=== PATIENT | male | born 1935 | race Caucasian/White ===

== ENCOUNTER 2017-03-25 09:22 | Inpatient (IN) ==
[2017-03-25] MEDS ORDERED: Ipratropium/Albuterol Neb 3 ML IH ONE (09:28)
[2017-03-25] MEDS ORDERED: methylPREDNISolone 125 MG/2 ML VIAL IVP ONE (09:28)
[2017-03-25] MEDS ORDERED: 0.9 % Sodium Chloride 1,000 ML IVC ONE (09:30)
--- NOTE | 2017-03-25 09:31 | Emergency Department Note ---
Disposition Clinical Impression: COPD exacerbation, Leukocytosis, Acute exacerbation of chronic obstructive airways disease Disposition: Admitted As Inpatient Condition: Fair General Adult HPI - General Chief complaint: ED Shortness of Breath/Dyspnea Stated complaint: CHELSI Time Seen by Provider: 03/25/17 09:22 Source: patient, family Limitations: no limitations - History of Present Illness Pain Scale: 0 - Related Data Home Medications Medication Instructions Recorded Confirmed Albuterol Neb [Proventil Neb] 2.5 mg IH Q4HR PRN 07/15/15 03/25/17 Amlodipine Besylate/Benazepril 1 cap PO DAILY 07/15/15 03/25/17 [Lotrel 5-10 mg Capsule] Docosahexanoic Acid/Epa [Fish Oil 1 cap PO DAILY 07/15/15 03/25/17 Concentrate Softgel] Meloxicam [Mobic] 15 mg PO DAILY 07/15/15 03/25/17 Omeprazole [PriLOSEC] 40 mg PO DAILY 07/15/15 03/25/17 PredniSONE 10 mg PO DAILY 07/15/15 03/25/17 Tiotropium [Spiriva] 18 mcg IH DAILY 07/15/15 03/25/17 Aspirin 81 mg PO DAILY 09/12/16 03/25/17 Fluticasone/Salmeterol [Advair 1 puff IH BID 09/12/16 03/25/17 500-50 Diskus] TraZODone 50 mg PO HS 09/12/16 03/25/17 ALPRAZolam [Xanax 0.5 MG Tablet] 0.5 mg PO TID PRN 03/25/17 03/25/17 Apixaban [Eliquis] 5 mg PO BID 03/25/17 03/25/17 Azithromycin [Zithromax] 250 mg PO Q48H 03/25/17 03/25/17 Budesonide/Formoterol 160/4.5 2 puff IH BID 03/25/17 03/25/17 [Symbicort 160/4.5] Diltiazem CD (24hr) [Cardizem CD] 180 mg PO DAILY 03/25/17 03/25/17 Furosemide [Lasix] 5 mg PO DAILY PRN 03/25/17 03/25/17 Frederic/Poly/Dex Opth SUSP [Maxitrol 1 drop BOTH EYES HS 03/25/17 03/25/17 OPTH SUSP] Simvastatin [Zocor] 40 mg PO HS 03/25/17 03/25/17 Tamsulosin [Flomax] 0.4 mg PO DAILY 03/25/17 03/25/17 Previous Rx's Medication Instructions Recorded predniSONE [PredniSONE] 40 mg PO DAILY #10 tablet 09/12/16 Allergies Allergy/AdvReac Type Severity Reaction Status Date / Time Penicillins [PCN] Allergy Rash Verified 03/25/17 10:18 Past Medical History - Past Medical History Medical history: Reports: arthritis, COPD, GERD, hyperlipidemia, hypertension Surgical history: Reports: angioplasty/stent, herniorrhaphy, hip replacement, knee replacement, pacemaker/AICD Psychiatric history: Reports: anxiety - Social History Smoking Status: Former smoker Smokeless Tobacco Status: No Alcohol use: Reports: none Drug use: Reports: none Physical Exam - General Limitations: no limitations General appearance: alert, in no apparent distress Course Vital Signs Temperature 98.9 F 03/25/17 09:24 Pulse Rate 97 03/25/17 09:24 Respiratory Rate 26 03/25/17 09:24 Blood Pressure 133/102 03/25/17 09:24 O2 Sat by Pulse Oximetry 88 03/25/17 09:24 Temperature 98.1 F 03/25/17 15:11 Pulse Rate 81 03/25/17 15:11 Respiratory Rate 19 03/25/17 16:10 Blood Pressure 144/77 03/25/17 15:11 O2 Sat by Pulse Oximetry 95 03/25/17 16:10 Oxygen Delivery Oxygen Delivery Nasal Cannula Medical Decision Making - Lab Data Result diagrams: 03/25/17 09:30 03/25/17 09:30 Lab Results 03/25/17 03/25/17 03/25/17 Range/Units 09:30 09:30 09:30 WBC 32.0 H* (4.3-11.1) K/mcL RBC 5.18 (4.19-5.50) M/mcL Hgb 14.8 (12.9-16.9) g/dL Hct 45.6 (37.5-50.1) % MCV 88.0 (83.0-100.0) fL MCH 28.6 (28.0-33.3) pg MCHC 32.5 (31.6-35.5) g/dL RDW 13.8 (11.5-14.5) % Plt Count 341 (140-400) K/mcL MPV 8.9 L (9.4-12.4) fL Seg Neutrophils % 84.0 % Band Neutrophils % 9.0 H (0-4) % Lymphocytes % 3.0 % Monocytes % 4.0 % Neutrophils # 29.8 H (1.6-8.9) K/mcL Lymphocytes # 1.0 (0.6-4.6) K/mcL Monocytes # 1.3 (0.0-1.3) K/mcL Platelet Estimate Normal (Normal) PT (9.4-12.1) Seconds INR D-Dimer (0-500) ng/mLFEU Sodium 137 (136-145) mEq/L Potassium 4.3 (3.5-4.5) mEq/L Chloride 102 (98-109) mEq/L Carbon Dioxide 26 (19-29) mEq/L BUN 13 (8-26) mg/dL Creatinine 1.05 (0.72-1.25) mg/dL Est GFR ( Amer) > 60 (> 60) Est GFR (Non-Af Amer) > 60 (> 60) BUN/Creatinine Ratio 12 (6-26) Glucose 165 H (70-99) mg/dL Calculated Osmolality 288 (280-300) Lactic Acid (0.5-2.2) mmol/L Calcium 10.2 (8.6-10.8) mg/dL Troponin I 0.02 (0-0.03) ng/mL B-Natriuretic Peptide (0-100) pg/mL 03/25/17 03/25/17 03/25/17 Range/Units 09:30 09:30 10:36 WBC (4.3-11.1) K/mcL RBC (4.19-5.50) M/mcL Hgb (12.9-16.9) g/dL Hct (37.5-50.1) % MCV (83.0-100.0) fL MCH (28.0-33.3) pg MCHC (31.6-35.5) g/dL RDW (11.5-14.5) % Plt Count (140-400) K/mcL MPV (9.4-12.4) fL Seg Neutrophils % % Band Neutrophils % (0-4) % Lymphocytes % % Monocytes % % Neutrophils # (1.6-8.9) K/mcL Lymphocytes # (0.6-4.6) K/mcL Monocytes # (0.0-1.3) K/mcL Platelet Estimate (Normal) PT 12.9 H (9.4-12.1) Seconds INR 1.2 D-Dimer (0-500) ng/mLFEU Sodium (136-145) mEq/L Potassium (3.5-4.5) mEq/L Chloride (98-109) mEq/L Carbon Dioxide (19-29) mEq/L BUN (8-26) mg/dL Creatinine (0.72-1.25) mg/dL Est GFR ( Amer) (> 60) Est GFR (Non-Af Amer) (> 60) BUN/Creatinine Ratio (6-26) Glucose (70-99) mg/dL Calculated Osmolality (280-300) Lactic Acid 1.0 (0.5-2.2) mmol/L Calcium (8.6-10.8) mg/dL Troponin I (0-0.03) ng/mL B-Natriuretic Peptide 54 (0-100) pg/mL 03/25/17 03/25/17 Range/Units 13:06 14:48 WBC (4.3-11.1) K/mcL RBC (4.19-5.50) M/mcL Hgb (12.9-16.9) g/dL Hct (37.5-50.1) % MCV (83.0-100.0) fL MCH (28.0-33.3) pg MCHC (31.6-35.5) g/dL RDW (11.5-14.5) % Plt Count (140-400) K/mcL MPV (9.4-12.4) fL Seg Neutrophils % % Band Neutrophils % (0-4) % Lymphocytes % % Monocytes % % Neutrophils # (1.6-8.9) K/mcL Lymphocytes # (0.6-4.6) K/mcL Monocytes # (0.0-1.3) K/mcL Platelet Estimate (Normal) PT (9.4-12.1) Seconds INR D-Dimer 578 H (0-500) ng/mLFEU Sodium (136-145) mEq/L Potassium (3.5-4.5) mEq/L Chloride (98-109) mEq/L Carbon Dioxide (19-29) mEq/L BUN (8-26) mg/dL Creatinine (0.72-1.25) mg/dL Est GFR ( Amer) (> 60) Est GFR (Non-Af Amer) (> 60) BUN/Creatinine Ratio (6-26) Glucose (70-99) mg/dL Calculated Osmolality (280-300) Lactic Acid (0.5-2.2) mmol/L Calcium (8.6-10.8) mg/dL Troponin I 0.01 (0-0.03) ng/mL B-Natriuretic Peptide (0-100) pg/mL Attestation Statement - Attestation Attestation: I examined this patient and my medical decision-making was reviewed with the [employer]/PA/Advanced Practice Nurse/Resident Physician. I agree with the documented findings, disposition and treatment plan as described except to the extent set forth below. [id number] time provided Patient with a known history of COPD presents with dyspnea. He is actively dyspneic and using accessory muscles to breathe on exam
--- NOTE | 2017-03-25 09:32 | Emergency Department Note ---
Disposition Clinical Impression: COPD exacerbation, Acute exacerbation of chronic obstructive airways disease Leukocytosis Qualifiers: Leukocytosis type: unspecified Qualified Code(s): D72.829 - Elevated white blood cell count, unspecified Disposition: Admitted As Inpatient Condition: Fair Referrals: NO,PCP [Non-Partnered Physician] - Forms: ED Satisfaction Letter Time of Disposition: 10:05 SOB HPI - General Chief Complaint: ED Shortness of Breath/Dyspnea Stated Complaint: CHELSI Time Seen by Provider: 03/25/17 09:22 Source: patient, family Mode of arrival: wheelchair Limitations: no limitations Nursing Notes Reviewed: Yes Vital Signs Reviewed: Yes - History of Present Illness 81-year-old male history of hypertension, COPD presents for evaluation of dyspnea. History provided by the patient as well as the at bedside. states the patient has been having worsening shortness of breath over the past week. Patient also has been using his nebulizer at home 4-5 times a day. states he cannot ambulate from the bed to the bathroom without losing his breath. states that the patient has been intermittently on prednisone at home. Patient took 20 mg of prednisone this morning. Patient also received his nebulizer this morning as well. states that the patient is prescribed 2 L oxygen but the patient does not wear that on a routine basis. Patient denies any chest pain. Patient has been having a number of cough. No fevers. No recent hospitalizations. No nausea or vomiting. No abdominal pain. Patient does have history of A. fib and is on [place]. Pt Subjective Complaint: shortness of breath, cough Onset (ago): day(s) Improves with: oxygen, rest, bronchodilators, upright position Known history of: COPD Treatment prior to arrival: bronchodilator Cough present: Yes - Related Data Home oxygen amount: 2 liters Home Medications Medication Instructions Recorded Confirmed Albuterol Neb [Proventil Neb] 2.5 mg IH Q4HR PRN 07/15/15 09/12/16 Amlodipine Besylate/Benazepril 1 each PO DAILY 07/15/15 09/12/16 [Lotrel 5-10 mg Capsule] Atenolol [Tenormin] 50 mg PO DAILY 07/15/15 09/12/16 Atorvastatin [Lipitor] 20 mg PO HS 07/15/15 09/12/16 Budesonide/Formoterol 80/4.5 2 puff IH BIDR 07/15/15 09/12/16 [Symbicort] Docosahexanoic Acid/Epa [Fish Oil 1 each PO DAILY 07/15/15 09/12/16 Concentrate Softgel] Meloxicam [Mobic] 15 mg PO DAILY 07/15/15 09/12/16 Omeprazole [PriLOSEC] 40 mg PO DAILY 07/15/15 09/12/16 PredniSONE 10 mg PO DAILY 07/15/15 09/11/16 Tiotropium [Spiriva] 18 mcg IH DAILY 07/15/15 09/12/16 Aspirin 81 mg PO DAILY 09/12/16 09/12/16 Fluticasone/Salmeterol [Advair 1 puff IH BID 09/12/16 09/12/16 500-50 Diskus] TraZODone 50 mg PO HS 09/12/16 09/12/16 Previous Rx's Medication Instructions Recorded Furosemide [Lasix] 10 mg PO DAILY 5 Days 07/15/15 predniSONE [PredniSONE] 40 mg PO DAILY #10 tablet 09/12/16 Allergies Allergy/AdvReac Type Severity Reaction Status Date / Time Penicillins [PCN] Allergy Rash Verified 03/25/17 10:18 All systems ED: reviewed and negative except as stated. Constitutional: Reports: as per HPI. Denies: fever Eyes: Reports: as per HPI ENT ED: Reports: as per HPI Cardiovascular: Reports: as per HPI. Denies: chest pain Respiratory: Reports: as per HPI, cough, dyspnea. Denies: sputum production Gastrointestinal: Reports: as per HPI. Denies: nausea, vomiting Genitourinary: Reports: as per HPI Musculoskeletal: Reports: as per HPI Integumentary: Reports: as per HPI Neurological: Reports: as per HPI Psychiatric: Reports: as per HPI Endocrine: Reports: as per HPI Hematological/Lymphatic: Reports: as per HPI Allergic/Immunologic: Reports: as per HPI Past Medical History - Past Medical History Medical history: Reports: arthritis, COPD, GERD, hyperlipidemia, hypertension Surgical history: Reports: angioplasty/stent, herniorrhaphy, hip replacement, knee replacement, pacemaker/AICD Psychiatric history: Reports: anxiety - Social History Smoking Status: Former smoker Smokeless Tobacco Status: No Alcohol use: Reports: none Drug use: Reports: none Physical Exam - General Limitations: no limitations General appearance: alert, in distress - Head Head exam: atraumatic, normocephalic, normal inspection - Eye Eye exam: Present: normal appearance, PERRL, EOMI - ENT ENT exam: normal exam, mucous membranes moist - Neck Neck exam: Present: normal inspection, trachea midline - Chest Chest inspection: Present: normal inspection, symmetric chest wall rise - Respiratory Respiratory exam: Present: accessory muscle use (Sitting up in bed accessory muscle use.), prolonged expiratory phase, other (Diffusely decreased airflow) - Cardiovascular Cardiovascular exam: Present: tachycardia. Absent: systolic murmur - Abdominal Exam Abdominal exam: Present: soft, Non-Tender - Extremities Exam Extremities exam: Present: normal inspection, pedal edema (trace b/l) - Back Exam Back exam: Present: normal inspection - Neurological Exam Neurological exam: Present: alert, oriented X3 - Skin Skin exam: Present: warm, dry, intact, normal color Course Course Narrative: Patient seen and examined upon arrival. Patient appears in acute distress with accessory muscle use. Patient was 86% on 2 L initially. Patient's lung exam reveals tight airways. Notable wheeze. No focal lung exam. Patient has had a history of COPD. Patient will get respiratory support with nebs, steroids. Patient also get a screening cardiopulmonary valuation EKG, chest x-ray and lab work. Disposition likely admission. - Reevaluation(s) Reevaluation #1: Patient seen and examined. Patient's oxygen saturations did improve with nebs and steroids. Time: 09:42 Reevaluation #2: Patient seen and examined. Patient continues to improve with respiratory support. The patient does not warrant an inpatient this time. Patient's labwork reviewed that show that he has a significant leukocytosis likely related to steroids as well as stress response. Patient's chest x-ray shows no acute abnormalities. Given the degree of respiratory distress the patient was started on Levaquin. Patient will be admitted to the hospital service for further care and respiratory monitoring. Time: 09:59 Vital Signs Temperature 98.9 F 03/25/17 09:24 Pulse Rate 97 03/25/17 09:24 Respiratory Rate 26 03/25/17 09:24 Blood Pressure 133/102 03/25/17 09:24 O2 Sat by Pulse Oximetry 88 03/25/17 09:24 Temperature 98.9 F 03/25/17 09:24 Pulse Rate 93 03/25/17 09:44 Respiratory Rate 22 03/25/17 09:44 Blood Pressure 155/87 03/25/17 09:44 O2 Sat by Pulse Oximetry 97 03/25/17 09:44 Oxygen Delivery Oxygen Delivery Aerosol Mask Shortness of Breath/Dyspnea - MDM Narrative Medical decision making narrative: 81-year-old male with a history of COPD presents for evaluation respiratory distress and work of breathing. Patient's states symptoms started approximately a week ago. Progressively gotten worse. Patient denies any chest pain but does note worsening dyspnea. I states that the patient cannot ambulate and perform his activities daily living without increased work of breathing. Patient was noted be hypoxic on 2 L. Patient required oxygen supplementation besides his baseline. Patient was treated with steroids as well as DuoNeb's. Patient was tachycardic and tachypnea. Patient did meet surgical criteria however the patient is not septic. This is normal systemic response due to stress and increased work of breathing. Patient's chest x-ray shows no acute abnormalities however the patient was started on Levaquin given the degree of his symptoms. Patient also is noted to have leukocytosis likely related to steroids as well as stress response. No formal diagnosis of leukemia. Patient was given IV fluid hydration. Respiratory support. Patient' s chemistries as well as EKG and troponin were unremarkable. Less likely the patient has pulmonary embolism as he is on anticoagulation. Patient will be admitted to the hospital service for further care and monitoring. Looking back at the patient's history the patient was admitted 6 months ago for similar symptoms but no recent admissions. Patient is agreeable to plan of care. - Lab Data Lab results reviewed: Yes I reviewed the patient's lab results. Result diagrams: 03/25/17 09:30 03/25/17 09:30 Lab Results 03/25/17 03/25/17 03/25/17 Range/Units 09:30 09:30 09:30 WBC 32.0 H* (4.3-11.1) K/mcL RBC 5.18 (4.19-5.50) M/mcL Hgb 14.8 (12.9-16.9) g/dL Hct 45.6 (37.5-50.1) % MCV 88.0 (83.0-100.0) fL MCH 28.6 (28.0-33.3) pg MCHC 32.5 (31.6-35.5) g/dL RDW 13.8 (11.5-14.5) % Plt Count 341 (140-400) K/mcL MPV 8.9 L (9.4-12.4) fL Seg Neutrophils % 84.0 % Band Neutrophils % 9.0 H (0-4) % Lymphocytes % 3.0 % Monocytes % 4.0 % Neutrophils # 29.8 H (1.6-8.9) K/mcL Lymphocytes # 1.0 (0.6-4.6) K/mcL Monocytes # 1.3 (0.0-1.3) K/mcL Platelet Estimate Normal (Normal) PT (9.4-12.1) Seconds INR Sodium 137 (136-145) mEq/L Potassium 4.3 (3.5-4.5) mEq/L Chloride 102 (98-109) mEq/L Carbon Dioxide 26 (19-29) mEq/L BUN 13 (8-26) mg/dL Creatinine 1.05 (0.72-1.25) mg/dL Est GFR ( Amer) > 60 (> 60) Est GFR (Non-Af Amer) > 60 (> 60) BUN/Creatinine Ratio 12 (6-26) Glucose 165 H (70-99) mg/dL Calculated Osmolality 288 (280-300) Calcium 10.2 (8.6-10.8) mg/dL Troponin I 0.02 (0-0.03) ng/mL B-Natriuretic Peptide (0-100) pg/mL 03/25/17 03/25/17 Range/Units 09:30 09:30 WBC (4.3-11.1) K/mcL RBC (4.19-5.50) M/mcL Hgb (12.9-16.9) g/dL Hct (37.5-50.1) % MCV (83.0-100.0) fL MCH (28.0-33.3) pg MCHC (31.6-35.5) g/dL RDW (11.5-14.5) % Plt Count (140-400) K/mcL MPV (9.4-12.4) fL Seg Neutrophils % % Band Neutrophils % (0-4) % Lymphocytes % % Monocytes % % Neutrophils # (1.6-8.9) K/mcL Lymphocytes # (0.6-4.6) K/mcL Monocytes # (0.0-1.3) K/mcL Platelet Estimate (Normal) PT 12.9 H (9.4-12.1) Seconds INR 1.2 Sodium (136-145) mEq/L Potassium (3.5-4.5) mEq/L Chloride (98-109) mEq/L Carbon Dioxide (19-29) mEq/L BUN (8-26) mg/dL Creatinine (0.72-1.25) mg/dL Est GFR ( Amer) (> 60) Est GFR (Non-Af Amer) (> 60) BUN/Creatinine Ratio (6-26) Glucose (70-99) mg/dL Calculated Osmolality (280-300) Calcium (8.6-10.8) mg/dL Troponin I (0-0.03) ng/mL B-Natriuretic Peptide 54 (0-100) pg/mL - Radiology Data Radiology results reviewed: Yes I reviewed the patient's radiology results. Chest X-Ray 03/25/17 09:28 IMPRESSION: Stable chest with no new acute cardiopulmonary findings. D/ / Belen Carrizales MD / Belen Carrizales MD Interpreting Provider: Belen Carrizales MD - EKG Data EKG attestation: Yes I reviewed and interpreted this EKG. EKG shows normal: Reports: sinus rhythm Rate: Reports: tachycardia Rhythm: Reports: A.Fib [place]/QRS: Reports: normal Q waves: Reports: v1 T wave inversions noted in: Reports: v3 (Biphasic), v4 (Biphasic) Interpretation: Reports: no acute changes, nonspecific ST-T wave changes S.B.A.RTima - Katerina.Aviva.Maryellen Situation: Demographics Background: Presenting Complaint Assessment: Vital Signs, Course and respsone to treatment, Patient/Family Expectation Recommendation: Barrier(s) to disposition, Recommendation based on pending studies, treatments, or consults S.BTimaAViktor Report Given to: Dr. Orlin Erwin Time: 10:23
[2017-03-25 09:43] LABS: Hematocrit 45.6 % (37.5-50.1); Hemoglobin 14.8 g/dL (12.9-16.9); Mean Corpuscular HGB Conc 32.5 g/dL (31.6-35.5); Mean Corpuscular Hemoglobin 28.6 pg (28.0-33.3); Mean Platelet Volume 8.9 fL (9.4-12.4); Platelet Count 341 K/mcL (140-400); Red Blood Count 5.18 M/mcL (4.19-5.50); Red Cell Distribution Width 13.8 % (11.5-14.5)
[2017-03-25 09:45] LABS: INR 1.2; Prothrombin Time 12.9 Seconds (9.4-12.1)
[2017-03-25 09:53] LABS: BUN/Creatinine Ratio 12 (6-26); Blood Urea Nitrogen 13 mg/dL (8-26); Calcium 10.2 mg/dL (8.6-10.8); Carbon Dioxide 26 mEq/L (19-29); Chloride 102 mEq/L (98-109); Glucose 165 mg/dL (70-99); Osmolality,Calculated 288 (280-300); Potassium 4.3 mEq/L (3.5-4.5); Sodium 137 mEq/L (136-145); eGFR For African Americans > 60 (> 60); eGFR For Non-African Americans > 60 (> 60)
[2017-03-25] MEDS ORDERED: Levofloxacin 750 MG/150 ML 750 MG/150 ML BAG IVPB ONE (09:55)
[2017-03-25 10:10] LABS: Monocytes # 1.3 K/mcL (0.0-1.3); Neutrophils # 29.8 K/mcL (1.6-8.9); Platelet Estimate Normal (Normal)
[2017-03-25] MEDS ORDERED: Naloxone 0.4 MG/ML INJ IVP PRN (11:52)
[2017-03-25] MEDS ORDERED: Acetaminophen 325 MG TABLET PO PRN (11:52)
[2017-03-25] MEDS ORDERED: Albuterol 2.5 MG/3 ML NEBULIZER IH PRN (11:53)
[2017-03-25] MEDS ORDERED: Ipratropium/Albuterol Neb 3 ML ONE (12:57)
[2017-03-25] MEDS: Ipratropium/Albuterol Neb 3 ML IH SCH ×4 (13:01→23:07)
--- NOTE | 2017-03-25 13:25 | Internal Med History&Physical ---
<Gwendolyn Burnett - Last Filed: 03/25/17 14:05> Date of Encounter: 03/25/17 Time of Encounter: 12:00 Assessment and Plan (1) Respiratory failure with hypoxia Current visit: Yes Status: Acute 1 patient presented with tachypnea use of accessory muscles S PO2 80%.. He was given oxygen as well as DuoNeb steroids rest was tested improved. We will continue with oxygen titrating to maintain SPO2 greater than 92% 2 continuous steroids 3 and bronchodilators 4 we will check d-dimer rule out possible PE 5 check cardiac echo Qualifiers: Chronicity: acute on chronic Qualified Code(s): J96.21 - Acute and chronic respiratory failure with hypoxia (2) Acute exacerbation of chronic obstructive airways disease Current visit: Yes Status: Acute 1 presently experiencing some mild rest were distress with audible wheezing and sensory muscle use we will continue with DuoNeb nebs every 4 hours, every 2 as needed 2 continue with oxygen titrated maintain SPO2 greater than 92% 3 continue with steroids IV every 6 hours-taper (3) Leukocytosis Current visit: Yes Status: Acute 1 WBC 32 -suspect possibly related to steroids and reactive. However will rule out possible infectious process. Chest x-ray is clear we will obtain urinalysis 2 we will continue with Levaquin for now until the infectious process ruled out Qualifiers: Leukocytosis type: unspecified Qualified Code(s): D72.829 - Elevated white blood cell count, unspecified (4) Chronic a-fib Current visit: Yes Status: Acute 1 presently rate controlled we will continue with oral Cardizem as well as Eliquis (5) CAD (coronary artery disease) Current visit: Yes Status: Acute 1 presently no CP- continue aspirin statin and nitrates as needed 2 continue to trend troponin 3 cardiac monitoring Qualifiers: Coronary Disease-Associated Artery/Lesion type: [place] artery [place] vs. transplanted heart: [place] heart Associated angina: without angina Qualified Code(s): I25.10 - Atherosclerotic heart disease of [place] coronary artery without angina pectoris (6) DVT prophylaxis Current visit: Yes Status: Acute continue Eliquis Internal Medicine - H&P: HPI Chief complaint: SOB Admitted From: Emergency Dept Plans for Post Hospital Care: Home History of present illness: Mr. Vaca is a 81 year old male with past medical history of atrial fibrillation COPD GERD hypertension lipidemia CAD with stents pacemaker AICD. Patient has been experiencing increasing shortness of breath on exertion over the past week. Normally he is on 2 L nasal cannula as needed however over the past week he has been requiring continuous oxygen. He has been using nebulizer treatments with some relief. He denies any chest pain/palpitations fevers chills abdominal pain nausea vomiting or diarrhea. He does have nonproductive cough as well as lower extremity swelling bilaterally which she states is chronic. Last night he noted shortness of breath was worse than usual when he awoke this morning he was unable to relieve his symptoms with either oxygen nor breathing treatments. His states she gave him 40 mg of oral prednisone without any relief in symptoms Patient was transported to emergency department for evaluation. According to ER records upon arrival patient appeared to be in respiratory distress tachypnic using accessory muscles. Oxygen saturation was 88% on 2 L. He was immediately given breathing treatments, as well as IV Solu- Medrol with slight improvement in his respiratory state. Lab work did reveal some leukocytosis at 32.0 troponin was 0.02 BNP is 54 lactate was 1 chest x-ray with no acute process. He was given IV antibiotics and has been admitted for further workup and evaluation. Presently patient does appear to be in slight respiratory distress he has some audible wheezing with mild use of the sensory muscles. Lung sounds are diminished with faint expiratory wheeze. Heart sounds are irregular no rubs click gallops murmurs noted. Abdomen soft and nontender. Lower extremity with some pedal edema bilaterally. Presently he is satting 96% on 4 L. I reviewed this case with Dr Ordaz who agrees with plan Past Med Surg Social Fam HX - Past Medical History Medical history: arthritis, COPD, GERD, hyperlipidemia, hypertension Psychiatric history: anxiety - Past Surgical History Surgical History: angioplasty/stent, herniorrhaphy, hip replacement, knee replacement, pacemaker/AICD - Social History Smoking Status: Former smoker Smokeless Tobacco Status: No Alcohol use: none Drug use: none - Family History Father Hx Family Endocrine Disorder: Yes (DM) Internal Medicine - H&P: Meds Albuterol Neb [Proventil Neb] 2.5 mg IH Q4HR PRN 07/15/15 [History] Amlodipine Besylate/Benazepril [Lotrel 5-10 mg Capsule] 1 cap PO DAILY 07/15/15 [History] Docosahexanoic Acid/Epa [Fish Oil Concentrate Softgel] 1 cap PO DAILY 07/15/15 [ History] Meloxicam [Mobic] 15 mg PO DAILY 07/15/15 [History] Omeprazole [PriLOSEC] 40 mg PO DAILY 07/15/15 [History] PredniSONE 10 mg PO DAILY 07/15/15 [History] Tiotropium [Spiriva] 18 mcg IH DAILY 07/15/15 [History] Aspirin 81 mg PO DAILY 09/12/16 [History] Fluticasone/Salmeterol [Advair 500-50 Diskus] 1 puff IH BID 09/12/16 [History] TraZODone 50 mg PO HS 09/12/16 [History] predniSONE [PredniSONE] 40 mg PO DAILY #10 tablet 09/12/16 [Rx] ALPRAZolam [Xanax 0.5 MG Tablet] 0.5 mg PO TID PRN 03/25/17 [History] Apixaban [Eliquis] 5 mg PO BID 03/25/17 [History] Azithromycin [Zithromax] 250 mg PO Q48H 03/25/17 [History] Budesonide/Formoterol 160/4.5 [Symbicort 160/4.5] 2 puff IH BID 03/25/17 [ History] Diltiazem CD (24hr) [Cardizem CD] 180 mg PO DAILY 03/25/17 [History] Furosemide [Lasix] 5 mg PO DAILY PRN 03/25/17 [History] Frederic/Poly/Dex Opth SUSP [Maxitrol OPTH SUSP] 1 drop BOTH EYES HS 03/25/17 [ History] Simvastatin [Zocor] 40 mg PO HS 03/25/17 [History] Tamsulosin [Flomax] 0.4 mg PO DAILY 03/25/17 [History] Allergies Penicillins [PCN] Allergy (Verified 03/25/17 10:18) Rash All Systems PM: A 10-system review of systems was performed and is negative for pertinent findings except as documented above in the HPI. - Constitutional Constitutional: weight gain, no chills, no fever(s), no night sweats - EENT Eyes: no change in vision, no discharge, no pain, no photophobia Nose, mouth and throat: no dysphagia, no nasal discharge, no neck pain, no sore throat - Cardiovascular Cardiovascular ROS IM: dyspnea on exertion, edema, no chest pain, no diaphoresis , no dyspnea, no lightheadedness, no palpitations, no syncope - Respiratory Respiratory: cough, dyspnea on exertion, no dyspnea, no wheezing, no excessive phlegm production - Gastrointestinal Gastrointestinal: no abdominal pain, no diarrhea, no hematemesis, no hematochezia, no melena, no nausea, no vomiting - Musculoskeletal Musculoskeletal ROS IM: no numbness, no tingling - Integumentary Integumentary IM: no rash, no unusual bruising - Neurological Neurological ROS: no confusion, no convulsions, no focal weakness, no numbness, no tingling, no tremor(s) - Hematologic/Lymphatic Hematologic/Lymphatic: no easy bruising - Constitutional Vitals: Temp Pulse Resp BP Pulse Ox 97.9 F 94 20 162/78 95 03/25/17 11:45 03/25/17 11:45 03/25/17 13:02 03/25/17 11:45 03/25/17 13:02 General appearance: Present: A&O X 3, answers questions appropriately - Head Head exam: Present: atraumatic, normocephalic - Eye Eye exam: Present: PERRL, conjuntiva pink, sclera anicteric Pupils: Present: PERRL - Neck Neck exam general surgery: Present: supple, trachea midline. Absent: lymphadenopathy - Respiratory Respiratory exam: Present: decreased breath sounds, wheezes. Absent: accessory muscle use, rales, rhonchi - Cardiovascular Cardiovascular exam: Present: irregular rhythm, +S1, +S2. Absent: diastolic murmur, gallop, rubs, systolic murmur - GI/Abdominal GI/Abdominal exam: Present: normal bowel sounds, soft, no peritoneal signs. Absent: distended, tenderness - Extremities Exam Extremities exam: Present: warm, radial pulses palpable and symetrical. Absent : calf tenderness, cyanotic, pedal edema - Neurological Exam Neurological exam: Present: CN II-XII intact, oriented X3, no focal deficits. Absent: pronater drift, facial droop, speech deficit - Skin Skin exam: Present: dry, intact Internal Med - H&P Results - Labs CBC & Chem 7: 03/25/17 09:30 03/25/17 09:30 - EKG Data EKG comments: 03/25/17 13:44 EKG with atrial fibrillation. She has some T-wave inversions in V3 V4 V5 - Diagnostic Studies Other Images Additional comments: Chest X-Ray 03/25/17 09:28 IMPRESSION: Stable chest with no new acute cardiopulmonary findings. D/ / Belen Carrizales MD / Belen Carrizales MD Interpreting Provider: Belen Carrizales MD <OrlinJarvis T - Last Filed: 03/25/17 14:17> Date of Encounter: 03/25/17 Internal Medicine - H&P: HPI History of present illness: Mr. Vaca is a 81 year old male All Systems PM: A 10-system review of systems was performed and is negative for pertinent findings except as documented above in the HPI. - Constitutional Vitals: Temp Pulse Resp BP Pulse Ox 97.9 F 94 20 162/78 95 03/25/17 11:45 03/25/17 11:45 03/25/17 13:02 03/25/17 11:45 03/25/17 13:02 Internal Med - H&P Results - Labs CBC & Chem 7: 03/25/17 09:30 03/25/17 09:30 - Attending Attestation I have independently seen and examined this patient, plan of care discussed with patient and family, as well as CYANIDE CASE HARDENER Burnett 81 M with PMH of COPD on home O2, GERD, HTN, HLD, Afib with AICD on Eliquis, reports symptoms of shortness of breath for about a week with a sudden acute exacerbation during last night, for which he could not walk from his bed to the bathroom. He denies new or worsening cough, fever or chills, no chest pain, palpitations or dizziness. No abdominal symptoms, he had LE swelling for which he started taking po Lasix for a few days. He took 40mg prednisone and multiple nebs prior to presentation In the ER, was found to be hypoxic, O2 Sat 88% and in severed distress, using accessory muscles of respiration, he was started on management for COPD exacerbation On evaluation, he is in no form of distress and has made significant improvement , he however continues to have diminished air entry and few scattered wheezes. No crackles, abdomen is benign, trace pedal edema bilaterally. Labs and imaging reviewed: Leukocytosis 32,000 with left shift, otherwise unremarkable. EKG showed TWI in leads V3-V5, new compared to prior EKG in 2015, CXR with no infiltrates A/P* Acute hypoxic respiratory failure secondary to acute exacerbation of COPD. R/O ACS. Send D-dimer, Trend troponin, Obtain ECHO, duonebs q4 and q2prn, resume home meds, and continue IV steroids. Rest of details as in STEEL LAYER Burnett documentation which I agree with
[2017-03-25 17:29] LABS: Bilirubin,Urine Negative (Negative); Blood,Urine Trace (Negative); Clarity,Urine Clear (Clear); Color,Urine Yellow (Yellow); Glucose,Urine (UA) Normal (Normal); Ketones,Urine Negative (Negative); Leukocyte Esterase,Urine Negative (Negative); Nitrite,Urine Negative (Negative); Protein,Urine 30 mg/dL (Neg-Trace); Specific Gravity,Urine 1.015 (1.010-1.025); Urobilinogen,Urine Normal (Normal)
[2017-03-25 17:31] LABS: Bacteria,Urine None Seen per hpf (None-Few); Hyaline Casts,Urine None Seen per lpf (None-Few); Squamous Epithelial Cell,Urine Moderate per lpf (None-Few); WBC,Urine 0-3 per hpf (0-3)
[2017-03-25] MEDS: methylPREDNISolone 125 MG/2 ML VIAL IVP SCH ×2 (18:11→22:55)
[2017-03-25] MEDS: Budesonide/Formoterol 160/4.5 MDI IH SCH (19:53)
[2017-03-25] MEDS: APIXABAN 5 MG TABLET PO SCH (20:52)
[2017-03-25] MEDS: Maxitrol OPTH SUSP 5 ML BOTTLE BOTH EYES SCH (20:52)
[2017-03-25] MEDS: traZODone 50 MG TABLET PO SCH (20:52)
[2017-03-25] MEDS ORDERED: Budesonide/Formoterol 160/4.5 MDI IH SCH (21:00)
[2017-03-26] MEDS: Ipratropium/Albuterol Neb 3 ML IH SCH ×5 (03:58→19:50)
[2017-03-26 05:11] LABS: Basophils % 0.1 %; Hematocrit 38.4 % (37.5-50.1); Immature Granulocytes % 0.6 % (0-4); Lymphocytes # 0.5 K/mcL (0.6-4.6); Lymphocytes % 2.1 %; Mean Corpuscular HGB Conc 33.1 g/dL (31.6-35.5); Mean Corpuscular Volume 87.7 fL (83.0-100.0); Monocytes # 0.2 K/mcL (0.0-1.3); Platelet Count 287 K/mcL (140-400); Red Blood Count 4.38 M/mcL (4.19-5.50); Red Cell Distribution Width 13.7 % (11.5-14.5); Segmented Neutrophils % 96.2 %
[2017-03-26 05:14] LABS: Hemoglobin 12.7 g/dL (12.9-16.9); Neutrophils # 22.2 K/mcL (1.6-8.9)
[2017-03-26 05:19] LABS: BUN/Creatinine Ratio 17 (6-26); Blood Urea Nitrogen 17 mg/dL (8-26); Calcium 9.2 mg/dL (8.6-10.8); Carbon Dioxide 22 mEq/L (19-29); Chloride 105 mEq/L (98-109); Glucose 149 mg/dL (70-99); Magnesium 1.7 mg/dL (1.6-2.6); Osmolality,Calculated 286 (280-300); Potassium 4.3 mEq/L (3.5-4.5); Sodium 136 mEq/L (136-145); eGFR For African Americans > 60 (> 60); eGFR For Non-African Americans > 60 (> 60)
[2017-03-26] MEDS: methylPREDNISolone 125 MG/2 ML VIAL IVP SCH ×2 (05:37→12:38)
[2017-03-26 05:49] LABS: Platelet Estimate Normal (Normal)
[2017-03-26] MEDS: Tiotropium 18 MCG inhalation IH SCH (07:45)
[2017-03-26] MEDS: Budesonide/Formoterol 160/4.5 MDI IH SCH ×2 (07:45→19:50)
[2017-03-26] MEDS ORDERED: amLODIPine 5 MG TABLET PO SCH ×2 (09:00→17:38)
[2017-03-26] MEDS: Diltiazem CD (24hr) 180 MG CAPSULE PO SCH (09:26)
[2017-03-26] MEDS: Levofloxacin 750 MG/150 ML 750 MG/150 ML BAG IVPB SCH (09:26)
[2017-03-26] MEDS: APIXABAN 5 MG TABLET PO SCH ×2 (09:26→20:26)
[2017-03-26] MEDS: Aspirin 81 MG TAB.CHEW PO SCH (09:26)
--- NOTE | 2017-03-26 17:31 | Internal Med Progress Note ---
Date of Encounter: 03/26/17 Time of Encounter: 14:00 - Assessment and plan (1) Respiratory failure with hypoxia Current Visit: Yes Status: Acute Assessment and plan: Pt still on 4L oxygen. Still dyspneic with movement. Will titrate down as able but patient requests a higher flow rate at discharge so will need to write new prescription. Qualifiers: Chronicity: acute on chronic Qualified Code(s): J96.21 - Acute and chronic respiratory failure with hypoxia (2) Acute exacerbation of chronic obstructive airways disease Current Visit: Yes Status: Acute Assessment and plan: Slowly improving. Taper steroids and continue other medications. Hopeful d/c tomorrow if continues to improve. (3) Leukocytosis Current Visit: Yes Status: Acute Assessment and plan: Somewhat better today. Recheck tomorrow. Qualifiers: Leukocytosis type: unspecified Qualified Code(s): D72.829 - Elevated white blood cell count, unspecified (4) Chronic a-fib Current Visit: Yes Status: Acute Assessment and plan: Rate controlled at this time. Seems to be regular on exam. On Eliquis. (5) CAD (coronary artery disease) Current Visit: Yes Status: Chronic Assessment and plan: Chronic issue. Qualifiers: Coronary Disease-Associated Artery/Lesion type: [place] artery [place] vs. transplanted heart: [place] heart Associated angina: without angina Qualified Code(s): I25.10 - Atherosclerotic heart disease of [place] coronary artery without angina pectoris - Subjective Interval history: Mr. Vaca is currently admitted for acute hypoxic resp failure related to acute exac COPD. He remains moderate to high risk due to potential for worsening respiratory status. Mr. Vaca is feeling somewhat better today though still very dyspneic with movement. No CP. No fever or chills. No GI symptoms. - Constitutional Vitals: Temp Pulse Resp BP Pulse Ox 98.2 F 89 18 140/78 91 03/26/17 15:50 03/26/17 15:50 03/26/17 16:08 03/26/17 15:50 03/26/17 16:08 General appearance: Present: A&O X 3, answers questions appropriately - Head Head exam: Present: normocephalic - Eye Eye exam: Present: EOMI, conjuntiva pink - ENT ENT exam: Present: mucous membranes moist - Respiratory Respiratory exam: Present: prolonged expiratory phase, wheezes. Absent: rales, rhonchi Additional comments: Slight end exp wheeze bilaterally. - Cardiovascular Cardiovascular exam: Present: RRR. Absent: systolic murmur, tachycardia - GI/Abdominal GI/Abdominal exam: Present: soft. Absent: tenderness - Extremities Exam Extremities exam: Present: warm. Absent: tenderness - Neurological Exam Neurological exam: Present: alert, oriented X3, no focal deficits - Psychiatric Psychiatric exam: Present: normal affect, normal mood - Skin Skin exam: Present: dry, warm. Absent: rash Internal Medicine: Result - Labs CBC & Chem 7: 03/26/17 03:34 03/26/17 03:34 Labs: Short CBC 03/26/17 Range/Units 03:34 WBC 23.1 H (4.3-11.1) K/mcL Hgb 12.7 L D (12.9-16.9) g/dL Hct 38.4 (37.5-50.1) % Plt Count 287 (140-400) K/mcL Neutrophils # 22.2 H (1.6-8.9) K/mcL BMP 03/26/17 03:34 Sodium 136 Potassium 4.3 Chloride 105 Carbon Dioxide 22 BUN 17 Creatinine 1.00 Glucose 149 H Calcium 9.2 Cardiac Enzymes 03/25/17 Range/Units 21:09 Troponin I 0.03 (0-0.03) ng/mL Urine 03/25/17 Range/Units 17:15 Urine Color Yellow (Yellow) Urine Clarity Clear (Clear) Urine pH 6.0 (5.0-8.0) pH Units Ur Specific [place] 1.015 (1.010-1.025) Urine Protein 30 H (Neg-Trace) mg/dL Urine Glucose (UA) Normal (Normal) mg/dL - ABG Interpretation ABG results: PT/INR, D-dimer PT 12.9 Seconds (9.4-12.1) H 03/25/17 09:30 D-Dimer 578 ng/mLFEU (0-500) H 03/25/17 13:06 Consult Discharge Plan - Plan Referrals: King Monique MD [Primary Care Provider] -
[2017-03-26] MEDS: MethylPREDNISolone 40 MG/ML VIAL IVP SCH ×2 (18:37→23:24)
[2017-03-26] MEDS: traZODone 50 MG TABLET PO SCH (20:25)
[2017-03-26] MEDS: Maxitrol OPTH SUSP 5 ML BOTTLE BOTH EYES SCH (20:26)
[2017-03-27] MEDS: Ipratropium/Albuterol Neb 3 ML IH SCH ×4 (00:14→11:17)
[2017-03-27] MEDS: MethylPREDNISolone 40 MG/ML VIAL IVP SCH (05:20)
[2017-03-27 05:24] LABS: Hematocrit 38.2 % (37.5-50.1); Hemoglobin 12.5 g/dL (12.9-16.9); Mean Corpuscular HGB Conc 32.7 g/dL (31.6-35.5); Mean Corpuscular Hemoglobin 28.3 pg (28.0-33.3); Mean Corpuscular Volume 86.6 fL (83.0-100.0); Mean Platelet Volume 9.4 fL (9.4-12.4); Platelet Count 283 K/mcL (140-400); Red Blood Count 4.41 M/mcL (4.19-5.50); Red Cell Distribution Width 13.7 % (11.5-14.5)
[2017-03-27 05:39] LABS: BUN/Creatinine Ratio 24 (6-26); Blood Urea Nitrogen 23 mg/dL (8-26); Calcium 9.5 mg/dL (8.6-10.8); Carbon Dioxide 26 mEq/L (19-29); Chloride 105 mEq/L (98-109); Glucose 160 mg/dL (70-99); Magnesium 1.9 mg/dL (1.6-2.6); Osmolality,Calculated 293 (280-300); Sodium 138 mEq/L (136-145); eGFR For African Americans > 60 (> 60); eGFR For Non-African Americans > 60 (> 60)
[2017-03-27 07:41] VITALS: BP 133/65
[2017-03-27] MEDS: Budesonide/Formoterol 160/4.5 MDI IH SCH (07:47)
[2017-03-27] MEDS: Tiotropium 18 MCG inhalation IH SCH (07:47)
[2017-03-27] MEDS: Levofloxacin 750 MG/150 ML 750 MG/150 ML BAG IVPB SCH (08:02)
[2017-03-27] MEDS: APIXABAN 5 MG TABLET PO SCH (08:02)
[2017-03-27] MEDS: Diltiazem CD (24hr) 180 MG CAPSULE PO SCH (08:02)
[2017-03-27] MEDS: Aspirin 81 MG TAB.CHEW PO SCH (08:03)
--- NOTE | 2017-03-27 09:27 | Discharge Summary ---
<Giovanny Robison - Last Filed: 03/27/17 14:48> Date of Encounter: 03/27/17 Time of Encounter: 08:30 - Discharge Diagnosis (1) Respiratory failure with hypoxia Priority: Primary Status: Acute Qualifiers: Chronicity: acute on chronic Qualified Code(s): J96.21 - Acute and chronic respiratory failure with hypoxia (2) Acute exacerbation of chronic obstructive airways disease Priority: Primary Status: Acute (3) Leukocytosis Priority: Secondary Status: Acute Qualifiers: Leukocytosis type: unspecified Qualified Code(s): D72.829 - Elevated white blood cell count, unspecified (4) Chronic a-fib Priority: Secondary Status: Chronic (5) CAD (coronary artery disease) Priority: Secondary Status: Chronic Qualifiers: Coronary Disease-Associated Artery/Lesion type: [place] artery [place] vs. transplanted heart: [place] heart Associated angina: without angina Qualified Code(s): I25.10 - Atherosclerotic heart disease of [place] coronary artery without angina pectoris - Discharge Medications Prescriptions: predniSONE [PredniSONE] See Taper PO DAILY #30 tablet Home Medications: Albuterol Neb [Proventil Neb] 2.5 mg IH Q4HR PRN 07/15/15 [History] Amlodipine Besylate/Benazepril [Lotrel 5-10 mg Capsule] 1 cap PO DAILY 07/15/15 [History] Docosahexanoic Acid/Epa [Fish Oil Concentrate Softgel] 1 cap PO DAILY 07/15/15 [ History] Meloxicam [Mobic] 15 mg PO DAILY 07/15/15 [History] Omeprazole [PriLOSEC] 40 mg PO DAILY 07/15/15 [History] Tiotropium [Spiriva] 18 mcg IH DAILY 07/15/15 [History] Aspirin 81 mg PO DAILY 09/12/16 [History] Fluticasone/Salmeterol [Advair 500-50 Diskus] 1 puff IH BID 09/12/16 [History] TraZODone 50 mg PO HS 09/12/16 [History] ALPRAZolam [Xanax 0.5 MG Tablet] 0.5 mg PO TID PRN 03/25/17 [History] Apixaban [Eliquis] 5 mg PO BID 03/25/17 [History] Azithromycin [Zithromax] 250 mg PO Q48H 03/25/17 [History] Budesonide/Formoterol 160/4.5 [Symbicort 160/4.5] 2 puff IH BID 03/25/17 [ History] Diltiazem CD (24hr) [Cardizem CD] 180 mg PO DAILY 03/25/17 [History] Furosemide [Lasix] 5 mg PO DAILY PRN 03/25/17 [History] Frederic/Poly/Dex Opth SUSP [Maxitrol OPTH SUSP] 1 drop BOTH EYES HS 03/25/17 [ History] Simvastatin [Zocor] 40 mg PO HS 03/25/17 [History] Tamsulosin [Flomax] 0.4 mg PO DAILY 03/25/17 [History] predniSONE [PredniSONE] See Taper PO DAILY #30 tablet 03/27/17 [Rx] Allergies/Adverse Reactions: Allergies Penicillins [PCN] Allergy (Verified 03/25/17 10:18) Rash Date of admission: 03/25/17 16:06 Primary care physician: King Monique MD Consults: 03/27/17 09:17 Consult to Physical Therapy [CONS] Routine Comment: Evaluate, develop and implement POC Reason for Consult: Discharge planning. OT [Consult to Occupational Therapy] [CONS] Routine Comment: Evaluate, develop and implement POC Reason for Consult: Discharge planning. Discharging clinician: Giovanny Robison Anticipated date of discharge: 03/27/17 - Patient Status Disposition: Home, Self-Care Condition: Fair Functional capacity at discharge: independent ambulation Overall status at discharge: patient is progressing back to baseline - Discharge Instructions Follow Up With: King Monique MD [Primary Care Provider] - 03/31/17 1:30 pm (Within a week after discharge) Additional Instructions: Please take prednisone taper: 40 mg daily for 3 days, then 30 mg daily for 3 days, followed by 20 mg daily for 3 days and finally 10 mg daily for 3 days. You can use 4L continuous oxygen at home and prescription has been written. Please continue your other COPD medications including Symbicort, Spiriva and albuterol. Please follow up with your primary care physician within a week after discharge. - Diet and Activity Activity: increase activity as tolerated, wear oxygen at all times Diet: low fat, low cholesterol, low salt diet Hospital course: Mr. Vaca is a 81 year old male with PMH of chronic A-fib on Cardizem & Eliquis, COPD (on 2 L home oxygen as needed), GERD, HTN, hyperlipidemia, CAD with stents, pacemaker & CAD. Patient presented with complaint of worsening dyspnea on exertion over a week. Patient was noted to have leukocytosis (32.0) and tachypnea with desaturation on oxygen but negative CXR. Patient was admitted for hypoxic respiratory failure secondary to acute exacerbation of COPD. Patient was started on IV Solu-Medrol along with Symbicort, Spiriva, albuterol and supplemental oxygen. Echocardiogram on 03/26/17 found LVEF 60-65% with mild LV diastolic dysfunction. Patient's respiratory status and leukocytosis improves since admission. Patient has WBC downtrend to 19.1 and is able to maintain O2 sat above 93% with 4L oxygen on 03/27/17. Given patient improves clinically and remains hemodynamically stable, patient will be discharged home with prescription of 4L continuous oxygen and prednisone taper ( 40 mg daily for 3 days, then 30 mg daily for 3 days, followed by 20 mg daily for 3 days and finally 10 mg daily for 3 days). Patient is instructed to continue his other COPD medications including Symbicort, Spiriva and albuterol and follow up with his primary care physician within a week after discharge. Patient agreed with plan of discharge and verbalized his understanding with all questions answered. - Time Spent with Patient Total time spent providing and/or coordinating discharge services: Greater than 30 minutes - Constitutional Vitals: Temp Pulse Resp BP Pulse Ox 98.2 F 79 18 133/65 98 03/27/17 07:34 03/27/17 07:34 03/27/17 07:47 03/27/17 07:34 03/27/17 07:47 General appearance: Present: A&O X 3, answers questions appropriately - Head Head exam: Present: atraumatic, normocephalic - Eye Eye exam: Present: PERRL, conjuntiva pink, sclera anicteric - Neck Neck exam general surgery: Present: supple, trachea midline. Absent: lymphadenopathy - Respiratory Respiratory exam: Present: CTAB. Absent: accessory muscle use, rales, rhonchi, wheezes - Cardiovascular Cardiovascular exam: Present: irregular rhythm, +S1, +S2. Absent: diastolic murmur, gallop, rubs, systolic murmur - GI/Abdominal GI/Abdominal exam: Present: normal bowel sounds, soft, no peritoneal signs. Absent: distended, tenderness - Extremities Exam Extremities exam: Present: warm, radial pulses palpable and symetrical. Absent : calf tenderness, cyanotic, pedal edema - Neurological Exam Neurological exam: Present: CN II-XII intact, oriented X3, no focal deficits. Absent: pronater drift, facial droop, speech deficit - Skin Skin exam: Present: dry, intact, warm <Raymundo Oviedo A - Last Filed: 03/27/17 19:11> Date of Encounter: 03/27/17 - Discharge Diagnosis (1) Respiratory failure with hypoxia Status: Acute Qualifiers: Chronicity: acute on chronic Qualified Code(s): J96.21 - Acute and chronic respiratory failure with hypoxia (2) Acute exacerbation of chronic obstructive airways disease Status: Acute (3) Leukocytosis Status: Acute Qualifiers: Leukocytosis type: unspecified Qualified Code(s): D72.829 - Elevated white blood cell count, unspecified (4) Chronic a-fib Status: Chronic (5) CAD (coronary artery disease) Status: Chronic Qualifiers: Coronary Disease-Associated Artery/Lesion type: [place] artery [place] vs. transplanted heart: [place] heart Associated angina: without angina Qualified Code(s): I25.10 - Atherosclerotic heart disease of [place] coronary artery without angina pectoris Date of admission: 03/25/17 16:06 Primary care physician: King Monique MD Consults: 03/27/17 09:17 Consult to Physical Therapy [CONS] Routine Comment: Evaluate, develop and implement POC Reason for Consult: Discharge planning. OT [Consult to Occupational Therapy] [CONS] Routine Comment: Evaluate, develop and implement POC Reason for Consult: Discharge planning. Hospital course: Mr. Vaca is a 81 year old male - Time Spent with Patient Total time spent providing and/or coordinating discharge services: 38min - Constitutional Vitals: Temp Pulse Resp BP Pulse Ox 98.2 F 60 18 133/65 94 03/27/17 07:34 03/27/17 11:22 03/27/17 11:14 03/27/17 11:14 03/27/17 11:22 - Attending Attestation I examined this patient and my medical decision-making was reviewed with the Resident Physician on 03/27/17. I agree with the documented findings, disposition and treatment plan as described except to the extent set forth below. Mr. Vaca is feeling near baseline. He is afebrile with stable vitals and ready for discharge home. Exam Alert. Comfortable Heart reg No wheeze Plan D/C home today.
--- NOTE | 2017-03-27 12:58 | Electrocardiograph Report ---
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
== END 2017-03-27 12:30 | disposition home or self-care (01) | DRG 190 ==
LOC: EMEROO 09:22 → 3ANU 09:22
PROVIDERS: ADMIT Internal Medicine; ATTEND Internal Medicine

== ENCOUNTER 2018-12-23 18:33 | Observation (INO) ==
[2018-12-23] MEDS ORDERED: Ipratropium/Albuterol Neb 3 ML IH ONE (18:50)
[2018-12-23 19:28] LABS: Basophils % 0.2 %; Hematocrit 46.3 % (37.5-50.1); Hemoglobin 15.5 g/dL (12.9-16.9); Immature Granulocytes % 1.5 % (0-4); Lymphocytes # 0.4 K/mcL (0.6-4.6); Mean Corpuscular HGB Conc 33.5 g/dL (31.6-35.5); Mean Corpuscular Hemoglobin 29.6 pg (28.0-33.3); Mean Corpuscular Volume 88.5 fL (83.0-100.0); Mean Platelet Volume 9.3 fL (9.4-12.4); Monocytes % 4.7 %; Neutrophils # 19.2 K/mcL (1.6-8.9); Platelet Count 233 K/mcL (140-400); Red Blood Count 5.23 M/mcL (4.19-5.50); Red Cell Distribution Width 13.6 % (11.5-14.5); Segmented Neutrophils % 91.6 %
[2018-12-23 19:50] LABS: BUN/Creatinine Ratio 30 (6-26); Blood Urea Nitrogen 26 mg/dL (8-23); Calcium 10.1 mg/dL (8.6-10.3); Carbon Dioxide 26 mEq/L (23-29); Chloride 101 mEq/L (98-107); Glucose 134 mg/dL (70-105); Osmolality,Calculated 287 (280-300); Potassium 4.5 mEq/L (3.5-5.1); Sodium 135 mEq/L (136-145); eGFR For Non-African Americans > 60 (> 60)
[2018-12-23 19:51] LABS: Troponin I < 0.03 ng/mL (< 0.04)
[2018-12-23] MEDS ORDERED: methylPREDNISolone 125 MG/2 ML VIAL IVP ONE (20:09)
--- NOTE | 2018-12-23 20:35 | Emergency Department Note ---
Disposition Clinical Impression: COPD exacerbation Disposition: Admitted As Inpatient Condition: Good General Adult HPI - General Chief complaint: ED Shortness of Breath/Dyspnea Stated complaint: SOB Time Seen by Provider: 12/23/18 18:41 Source: patient Mode of arrival: private vehicle Limitations: no limitations Nursing Notes Reviewed: Yes Vital Signs Reviewed: Yes - History of Present Illness HPI Narrative: Pt is 82M with Pmhx of COPD that presents with 1 week of increasing shortness of breath. He was placed on antibiotics and steroids and his symptoms have gotten worse. He is complaining of productive cough, wheezing, shortness of breath, subjective fevers. He is denying chest pain, numbness/tingling, weakness. He is on 4L NC O2 at baseline and is currently saturating well on that amount at bedside. Pain Scale: 0 - Related Data Home Medications Medication Instructions Recorded Confirmed RX: Albuterol Neb [Proventil Neb] 2.5 mg IH Q4HR PRN 07/15/15 12/23/18 RX: Docosahexanoic Acid/Epa [Fish 1 cap PO DAILY 07/15/15 12/23/18 Oil Concentrate Softgel] RX: Omeprazole [PriLOSEC] 40 mg PO DAILY 07/15/15 12/23/18 RX: Tiotropium [Spiriva] 18 mcg IH DAILY 07/15/15 12/23/18 RX: TraZODone 50 mg PO HS 09/12/16 12/23/18 RX: Apixaban [Eliquis] 5 mg PO BID 03/25/17 12/23/18 RX: Budesonide/Formoterol 160/4.5 2 puff IH BID 03/25/17 12/23/18 [Symbicort 160/4.5] RX: Diltiazem CD (24hr) [Cardizem 180 mg PO DAILY 03/25/17 12/23/18 CD] RX: Furosemide [Lasix] 20 mg PO DAILY 03/25/17 12/23/18 RX: Tamsulosin [Flomax] 0.8 mg PO DAILY 03/25/17 12/23/18 Albuterol Sulfate [Albuterol 2 puff IH Q4HR PRN 12/23/18 12/23/18 Inhaler] Atorvastatin [Lipitor] 20 mg PO HS 12/23/18 12/23/18 RX: Doxycycline 100 mg PO BID 12/23/18 12/23/18 RX: predniSONE [PredniSONE] 5 mg PO BIDWM 12/23/18 12/23/18 Allergies Allergy/AdvReac Type Severity Reaction Status Date / Time Penicillins [PCN] Allergy Rash Verified 12/23/18 18:38 All systems ED: reviewed and negative except as stated. Constitutional: Reports: fever. Denies: chills Eyes: Denies: vision change ENT ED: Reports: throat pain, congestion Cardiovascular: Reports: dyspnea on exertion. Denies: chest pain Respiratory: Reports: cough, dyspnea, wheezes. Denies: hemoptysis Gastrointestinal: Denies: abdominal pain, nausea, vomiting, diarrhea, constip ation Genitourinary: Denies: urgency, dysuria Musculoskeletal: Denies: back pain, neck pain Integumentary: Denies: rash, abrasion Neurological: Denies: headache, weakness, numbness, paresthesias Psychiatric: Denies: anxiety, depression Endocrine: Denies: fatigue, heat or cold intolerance Hematological/Lymphatic: Denies: easy bleeding, easy bruising Allergic/Immunologic: Denies: facial swelling, urticaria Past Medical History - Past Medical History Medical history: Reports: arthritis, COPD, GERD, hyperlipidemia, hypertension Surgical history: Reports: angioplasty/stent, herniorrhaphy, hip replacement, k nee replacement, pacemaker/AICD Psychiatric history: Reports: anxiety - Social History Smoking Status: Former smoker Smokeless Tobacco Status: No Alcohol use: Reports: none Drug use: Reports: none Physical Exam General: A&O x 3. No acute distress. Well developed, well nourished. Head: atraumatic, normocephalic. ENT: No conjunctival injection, no scleral icterus. PERRLA. EOMI. Oropharynx n on- erythematous. mucous membranes moist. Neuro: No focal deficits, no speech deficit, no facial droop, mentating well. BUE/BLE Str 5/5. Pulm: Diffuse expiratory wheezes with prolonged expiratory phase and transmitted upper respiratory sounds. Cardio: RRR no m/r/g. Chest not tender to palpation. Abd: Soft, non-distended. Normoactive bowel sounds. Non-tender to palpation. No guarding. Non rigid. Extremities: Radial pulses 2+ jitendra, dorsalis pedis/posterior tibialis 2+ jitendra. No LE edema. No cyanosis, clubbing. Skin: warm, dry, intact. No rashes. Psych: Appropriate mood and affect. Answers questions appropriately. Cooperative with exam. - General Limitations: no limitations General appearance: alert, in no apparent distress Course Course Narrative: Will obtain CXR, EKG, CBC, BMP, Troponin, blood cultures, lactic. Suspect admit for failure of outpatient therapy and COPD exacerbation. - Reevaluation(s) Reevaluation #1: CXR concerning for pneumonia of right base. Ordered antibiotics for CAPNA, ceftriaxone and azithromycin. Time: 20:44 Vital Signs Temperature 98.6 F 12/23/18 18:35 Pulse Rate 83 12/23/18 18:35 Respiratory Rate 20 12/23/18 18:35 Blood Pressure 179/93 12/23/18 18:35 O2 Sat by Pulse Oximetry 91 12/23/18 18:35 Temperature 98.6 F 12/23/18 18:35 Pulse Rate 74 12/23/18 21:29 Respiratory Rate 19 12/23/18 21:29 Blood Pressure 168/80 12/23/18 21:29 O2 Sat by Pulse Oximetry 93 12/23/18 21:29 Oxygen Delivery Oxygen Delivery Nasal Cannula Medical Decision Making - MDM Narrative Medical decision making narrative: Pts CXR was concerning for PNA of right lower lobe, pt was started on ceftriaxone and azithromycin, and admitted to hospitalist, Dr. Newman. Pt verbalized understanding and agreement with the plan. Pt was given an opportunity to ask questions and all of his concerns were addressed. pt remained stable on baseline level of home o2 while in the department. - Medical Records Medical records reviewed: Yes I reviewed the patient's medical records. - Lab Data Lab results reviewed: Yes I reviewed the patient's lab results. Result diagrams: 12/23/18 19:04 12/23/18 19:04 Lab Results 12/23/18 12/23/18 12/23/18 Range/Units 19:04 19:04 19:04 WBC 20.9 H (4.3-11.1) K/mcL RBC 5.23 (4.19-5.50) M/mcL Hgb 15.5 (12.9-16.9) g/dL Hct 46.3 (37.5-50.1) % MCV 88.5 (83.0-100.0) fL MCH 29.6 (28.0-33.3) pg MCHC 33.5 (31.6-35.5) g/dL RDW 13.6 (11.5-14.5) % Plt Count 233 (140-400) K/mcL MPV 9.3 L (9.4-12.4) fL Immature Gran % 1.5 (0-4) % Seg Neutrophils % 91.6 % Lymphocytes % 2.0 % Monocytes % 4.7 % Eosinophils % 0.0 % Basophils % 0.2 % Neutrophils # 19.2 H (1.6-8.9) K/mcL Lymphocytes # 0.4 L (0.6-4.6) K/mcL Monocytes # 1.0 (0.0-1.3) K/mcL Eosinophils # 0.0 (0.0-0.6) K/mcL Basophils # 0.0 (0.0-0.2) K/mcL Sodium 135 L (136-145) mEq/L Potassium 4.5 (3.5-5.1) mEq/L Chloride 101 (98-107) mEq/L Carbon Dioxide 26 (23-29) mEq/L BUN 26 H (8-23) mg/dL Creatinine 0.88 (0.70-1.30) mg/dL Est GFR ( Amer) > 60 (> 60) Est GFR (Non-Af Amer) > 60 (> 60) BUN/Creatinine Ratio 30 H (6-26) Glucose 134 H (70-105) mg/dL Calculated Osmolality 287 (280-300) Lactic Acid (0.5-2.2) mmol/L Calcium 10.1 (8.6-10.3) mg/dL Troponin I < 0.03 (< 0.04) ng/mL B-Natriuretic Peptide 119 H (Less than 100) pg/mL 12/23/18 Range/Units 19:13 WBC (4.3-11.1) K/mcL RBC (4.19-5.50) M/mcL Hgb (12.9-16.9) g/dL Hct (37.5-50.1) % MCV (83.0-100.0) fL MCH (28.0-33.3) pg MCHC (31.6-35.5) g/dL RDW (11.5-14.5) % Plt Count (140-400) K/mcL MPV (9.4-12.4) fL Immature Gran % (0-4) % Seg Neutrophils % % Lymphocytes % % Monocytes % % Eosinophils % % Basophils % % Neutrophils # (1.6-8.9) K/mcL Lymphocytes # (0.6-4.6) K/mcL Monocytes # (0.0-1.3) K/mcL Eosinophils # (0.0-0.6) K/mcL Basophils # (0.0-0.2) K/mcL Sodium (136-145) mEq/L Potassium (3.5-5.1) mEq/L Chloride (98-107) mEq/L Carbon Dioxide (23-29) mEq/L BUN (8-23) mg/dL Creatinine (0.70-1.30) mg/dL Est GFR ( Amer) (> 60) Est GFR (Non-Af Amer) (> 60) BUN/Creatinine Ratio (6-26) Glucose (70-105) mg/dL Calculated Osmolality (280-300) Lactic Acid 1.4 (0.5-2.2) mmol/L Calcium (8.6-10.3) mg/dL Troponin I (< 0.04) ng/mL B-Natriuretic Peptide (Less than 100) pg/mL - Radiology Data Radiology results reviewed: Yes I reviewed the patient's radiology results. Chest X-Ray 12/23/18 18:56 IMPRESSION: Chronic versus recurrent right basilar atelectasis or infiltrate with right pleural effusion. Pneumonia is a consideration. Pulmonary sequela typical of that seen with smoking, including possible emphysema; correlate with clinical history. Calcific atherosclerotic disease aorta. D/ / John Lind / John Lind Interpreting Provider: John Lind - EKG Data EKG #1 EKG attestation: Yes I reviewed and interpreted this EKG. EKG results narrative: HR 63, rhythm atrial-ventricular dual paced, axis left at -86. Attestation Statement - Attestation Attestation: Resident Attestation: I examined this patient and my medical decision making was reviewed with the Resident Physician. I agree with the documented findings, disposition and treatment plan as described except to the extent set forth below. We independently had [id number] contact with the patient. Patient with a history of COPD presenting for evaluation of concern for COPD exacerbation as he has been feeling worsening shortness of breath over the last week. Patient has home oxygen. Patient does not typically wear it because his only as needed. Patient is requiring it for the last week. Treated outpatient antibiotics with azithromycin and prednisone. Patient continuing to get worse. Patient will likely require admission secondary to failed outpatient management. Patient with diffuse generalized wheezing that that improved with breathing treatments.
[2018-12-23] MEDS ORDERED: cefTRIAXone 1,000 MG in Water for inj. (sterile) 20 ML 10 ML IVPB ONE (20:51)
[2018-12-23] MEDS ORDERED: Azithromycin 500 MG in D5% in Water 250 ML IVPB ONE (20:51)
[2018-12-23] MEDS ORDERED: Albuterol 2.5 MG/3 ML NEBULIZER IH PRN (21:14)
--- NOTE | 2018-12-23 21:53 | Internal Med History&Physical ---
Date of Encounter: 12/23/18 Time of Encounter: 21:51 Internal Medicine - H&P: HPI Chief complaint: SOB Admitted From: Home Plans for Post Hospital Care: Home History of present illness: Per Vaca is an 82-year-old man with coronary artery disease, atrial fibrillation and COPD who has been treated as an outpatient for her COPD exacerbation over the past 1 week blood symptoms have not improved and continues to be short of breath. He has been using home nebulizer therapy as well as taking doxycycline and oral steroids but says his breathing has not improved. He denies any chest pain, fever or chills but does report sick contacts at home. He is unable to expectorate adequately when he coughs. In the ER he received triple nebulizer therapy, IV steroids and antibiotics. He is currently saturating 93% on 4 L. X-ray reveals a chronic right base fine infiltrate. Vitals: Reviewed General: Well-developed male sitting up in bed in no acute distress. Skin: Warm and supple. HEENT: Moist mucous membranes. No conjunctivae pallor. Neck: No lymphadenopathy. No JVD. No carotid bruits. No palpable thyroid. Chest: Pacemaker on left upper chest wall. Diminished thoracic expansion. Reduced air entry to both lung melo. Heart: Normal S1 & S2; rhythmic. No rubs or murmurs. Abdomen: Non-distended, soft and non-tender to palpation. No peritoneal reaction. Extremities: No clubbing, cyanosis or edema. No calf tenderness. Normal distal pulses. Neurological: Awake, alert and oriented to person, place and time. No focal deficits. Psych: Affect appropriate. Past Med Surg Social Fam HX - Past Medical History Medical history: arthritis, COPD, GERD, hyperlipidemia, hypertension Psychiatric history: anxiety - Past Surgical History Surgical History: angioplasty/stent, herniorrhaphy, hip replacement, knee replacement, pacemaker/AICD Additional surgical history: HEMORRHOIDECTOMY, right hip replacement, stents times 2. - Social History Smoking Status: Former smoker Smokeless Tobacco Status: No Alcohol use: none Drug use: none - Family History Father Hx Family Endocrine Disorder: Yes (DM) Internal Medicine - H&P: Meds Albuterol Neb [Proventil Neb] 2.5 mg IH Q4HR PRN 07/15/15 [History] Docosahexanoic Acid/Epa [Fish Oil Concentrate Softgel] 1 cap PO DAILY 07/15/15 [History] Omeprazole [PriLOSEC] 40 mg PO DAILY 07/15/15 [History] Tiotropium [Spiriva] 18 mcg IH DAILY 07/15/15 [History] TraZODone 50 mg PO HS 09/12/16 [History] Apixaban [Eliquis] 5 mg PO BID 03/25/17 [History] Budesonide/Formoterol 160/4.5 [Symbicort 160/4.5] 2 puff IH BID 03/25/17 [History] Diltiazem CD (24hr) [Cardizem CD] 180 mg PO DAILY 03/25/17 [History] Furosemide [Lasix] 20 mg PO DAILY 03/25/17 [History] Tamsulosin [Flomax] 0.8 mg PO DAILY 03/25/17 [History] Albuterol Sulfate [Albuterol Inhaler] 2 puff IH Q4HR PRN 12/23/18 [History] Atorvastatin [Lipitor] 20 mg PO HS 12/23/18 [History] Doxycycline 100 mg PO BID 12/23/18 [History] predniSONE [PredniSONE] 5 mg PO BIDWM 12/23/18 [History] Allergy/AdvReac Type Severity Reaction Status Date / Time Penicillins [PCN] Allergy Rash Verified 12/23/18 18:38 All Systems PM: A 10-system review of systems was performed and is negative for pertinent findings except as documented above in the HPI. - Constitutional Vitals: Temp Pulse Resp BP Pulse Ox 98.6 F 74 19 168/80 93 12/23/18 18:35 12/23/18 21:29 12/23/18 21:29 12/23/18 21:29 12/23/18 21:29 Exam: . Internal Med - H&P Results - Labs CBC & Chem 7: 12/23/18 19:04 12/23/18 19:04 Labs: Short CBC 12/23/18 Range/Units 19:04 WBC 20.9 H (4.3-11.1) K/mcL Hgb 15.5 (12.9-16.9) g/dL Hct 46.3 (37.5-50.1) % Plt Count 233 (140-400) K/mcL Neutrophils # 19.2 H (1.6-8.9) K/mcL BMP 12/23/18 19:04 Sodium 135 L Potassium 4.5 Chloride 101 Carbon Dioxide 26 BUN 26 H Creatinine 0.88 Glucose 134 H Calcium 10.1 Cardiac Enzymes 12/23/18 Range/Units 19:04 Troponin I < 0.03 (< 0.04) ng/mL - Impressions ITS Impressions Chest X-Ray 12/23/18 18:56 IMPRESSION: Chronic versus recurrent right basilar atelectasis or infiltrate with right pleural effusion. Pneumonia is a consideration. Pulmonary sequela typical of that seen with smoking, including possible emphysema; correlate with clinical history. Calcific atherosclerotic disease aorta. D/ / John Lind / John Lind Interpreting Provider: John Lind - Assessment and Plan (1) Acute exacerbation of chronic obstructive airways disease Current Visit: Yes Status: Acute Assessment and plan: Will continue systemic steroids and azithromycin. Will also obtain a respiratory virus panel given the insidious symptoms, ill contacts and poor response. Standing nebulizer therapy ordered. No longer a smoker. Once improved, resume LABA/ICS daily. (2) Respiratory failure with hypoxia Current Visit: Yes Status: Acute Assessment and plan: Secondary to COPD exacerbation. Supplemental oxygen as needed with treatment of underlying condition. Qualifiers: Chronicity: acute on chronic Qualified Code(s): J96.21 - Acute and chronic respiratory failure with hypoxia (3) CAD (coronary artery disease) Current Visit: Yes Status: Chronic Assessment and plan: Currently asymptomatic. Continue home medications. Qualifiers: Coronary Disease-Associated Artery/Lesion type: [place] artery [place] vs. transplanted heart: [place] heart Associated angina: without angina Qualified Code(s): I25.10 - Atherosclerotic heart disease of [place] coronary artery without angina pectoris (4) Chronic a-fib Current Visit: Yes Status: Chronic Assessment and plan: Rate controlled. On apixaban. - Time Spent With Patient Total time spent is greater than 50% in coordination of care (as documented) at patient's floor/unit and/or counseling patient: Greater than 35 minutes
[2018-12-23] MEDS: traZODone 50 MG TABLET PO SCH (22:50)
[2018-12-23] MEDS: GuaiFENesin/Dextromethorphan TABLET PO SCH (22:50)
[2018-12-23] MEDS: Apixaban 5 MG TABLET PO SCH (22:50)
[2018-12-24] MEDS: Ipratropium/Albuterol Neb 3 ML IH SCH ×4 (00:19→11:38)
[2018-12-24 02:05] LABS: Adenovirus Not Detected (Not Detect); Bordetella Pertussis Not Detected (Not Detect); Chlamydophila pneumoniae Not Detected (Not Detect); Coronavirus 229E Not Detected (Not Detect); Coronavirus HKU1 Not Detected (Not Detect); Coronavirus NL63 Not Detected (Not Detect); Coronavirus OC43 Not Detected (Not Detect); Human Metapneumovirus Not Detected (Not Detect); Human Rhinovirus/Enterovirus Not Detected (Not Detect); Influenza A Subtype 2009 H1 Not Detected (Not Detect); Influenza A Untypeable Not Detected (Not Detect); Influenza B Not Detected (Not Detect); Mycoplasma pneumoniae Not Detected (Not Detect); Parainfluenza Virus 1 Not Detected (Not Detect); Parainfluenza Virus 2 Not Detected (Not Detect); Parainfluenza Virus 3 Not Detected (Not Detect); Parainfluenza Virus 4 Not Detected (Not Detect); Respiratory Syncytial Virus Not Detected (Not Detect)
[2018-12-24] MEDS ORDERED: predniSONE 20 MG TABLET PO SCH (08:00)
[2018-12-24] MEDS: GuaiFENesin/Dextromethorphan TABLET PO SCH (08:32)
[2018-12-24] MEDS: Apixaban 5 MG TABLET PO SCH ×2 (08:32→21:32)
[2018-12-24] MEDS: Furosemide 20 MG TABLET PO SCH (08:32)
[2018-12-24] MEDS: Diltiazem CD (24hr) 180 MG CAPSULE PO SCH (08:32)
[2018-12-24] MEDS ORDERED: Melatonin 3 MG TABLET PO PRN (10:48)
--- NOTE | 2018-12-24 13:08 | Internal Med Progress Note ---
Hospitalist Progress Note - Encounter Date of Encounter: 12/24/18 Time of Encounter: 10:00 - Subjective Interval History: Mr. Vaca is an 82-year-old man with coronary artery disease, atrial fibrillation on eliquis for anti coag and COPD, chronic hypoxic respiratory failure on 4 lit O2, who has been treated as an outpatient for his COPD exacerbation over the past 1 week blood symptoms have not improved and continues to be short of breath. He has been using home nebulizer therapy as well as taking doxycycline and oral steroids but says his breathing has not improved. His CXR showed Rt basilar infiltrate. Pt stated he is feeling little better today. Denied any CP. Still has moderate SOB and NIELSON. - Exam Vitals: Temp Pulse Resp BP Pulse Ox 99.4 F 89 17 151/90 97 12/24/18 11:40 12/24/18 11:40 12/24/18 11:40 12/24/18 11:40 12/24/18 11:40 Exam: Gen: Alert, awake, Oriented to time,place and person Chest: Diminished breath sounds B/L, moderate wheezing, No crackles, No rales, mild ronchi+ Heart: S1S2+ RRR No murmurs Abd: Soft, NT, BS +, No organomegaly Ext: No edema, pulses are palpable, No calf tenderness Neuro : Benign findings Skin: No rash. - Assessment and Plan (1) Acute exacerbation of chronic obstructive airways disease Current Visit: Yes Status: Acute Assessment and Plan: Improving continue systemic steroids continue scheduled bronchodilator continue oxygen continue empirical antibiotic Rocephin and azithromycin (2) Pneumonia Current Visit: Yes Status: Acute Assessment and Plan: mostly bacterial cont empirical abx Rocephin and Azithromycin reviewed his Resp viral panel - negative. (3) Respiratory failure with hypoxia Current Visit: Yes Status: Acute Assessment and Plan: He does have chronic hypoxic respiratory failure use 4 lit oxygen at home currently he is on 4 lit oxygen (4) Chronic a-fib Current Visit: Yes Status: Chronic Assessment and Plan: Rate controlled with Cardizem On apixaban for anti coag (5) CAD (coronary artery disease) Current Visit: Yes Status: Chronic Assessment and Plan: Currently asymptomatic. Continue home medications. - Time Spent with Patient Total time spent is greater than 50% in coordination of care (as documented) at patient's floor/unit and/or counseling patient: Internal Medicine: Result - Labs CBC & Chem 7: 12/23/18 19:04 12/23/18 19:04 Labs: Short CBC 12/23/18 Range/Units 19:04 WBC 20.9 H (4.3-11.1) K/mcL Hgb 15.5 (12.9-16.9) g/dL Hct 46.3 (37.5-50.1) % Plt Count 233 (140-400) K/mcL Neutrophils # 19.2 H (1.6-8.9) K/mcL BMP 12/23/18 19:04 Sodium 135 L Potassium 4.5 Chloride 101 Carbon Dioxide 26 BUN 26 H Creatinine 0.88 Glucose 134 H Calcium 10.1 Cardiac Enzymes 12/23/18 Range/Units 19:04 Troponin I < 0.03 (< 0.04) ng/mL - Impressions Impressions Chest X-Ray 12/23/18 18:56 IMPRESSION: Chronic versus recurrent right basilar atelectasis or infiltrate with right pleural effusion. Pneumonia is a consideration. Pulmonary sequela typical of that seen with smoking, including possible emphysema; correlate with clinical history. Calcific atherosclerotic disease aorta. D/ / John Lind / John Lind Interpreting Provider: John Lind Consult Discharge Plan - Plan Referrals: Silver Roberts MD [Partnered Physician] - (2) Pneumonia Qualifiers: Pneumonia type: due to unspecified organism Laterality: right Lung location: lower lobe of lung Qualified Code(s): J18.1 - Lobar pneumonia, unspecified organism (3) Respiratory failure with hypoxia Qualifiers: Chronicity: acute on chronic Qualified Code(s): J96.21 - Acute and chronic respiratory failure with hypoxia (5) CAD (coronary artery disease) Qualifiers: Coronary Disease-Associated Artery/Lesion type: [place] artery [place] vs. transplanted heart: [place] heart Associated angina: without angina Qualified Code(s): I25.10 - Atherosclerotic heart disease of [place] coronary artery without angina pectoris
--- NOTE | 2018-12-24 19:18 | Electrocardiograph Report ---
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
[2018-12-24] MEDS: predniSONE 20 MG TABLET PO SCH (21:32)
[2018-12-24] MEDS: traZODone 50 MG TABLET PO SCH (21:32)
[2018-12-24] MEDS ORDERED: Azithromycin 500 MG in D5% in Water 250 ML IVPB SCH (22:00)
[2018-12-25] MEDS: Ipratropium/Albuterol Neb 3 ML IH SCH ×3 (03:54→15:36)
[2018-12-25 05:24] LABS: Basophils % 0.1 %; Hematocrit 41.4 % (37.5-50.1); Immature Granulocytes % 1.3 % (0-4); Lymphocytes # 0.4 K/mcL (0.6-4.6); Lymphocytes % 2.2 %; Mean Corpuscular HGB Conc 33.8 g/dL (31.6-35.5); Mean Corpuscular Hemoglobin 29.8 pg (28.0-33.3); Mean Corpuscular Volume 88.1 fL (83.0-100.0); Mean Platelet Volume 9.6 fL (9.4-12.4); Monocytes # 0.8 K/mcL (0.0-1.3); Monocytes % 4.2 %; Neutrophils # 16.7 K/mcL (1.6-8.9); Platelet Count 199 K/mcL (140-400); Red Cell Distribution Width 13.4 % (11.5-14.5); Segmented Neutrophils % 92.2 %
[2018-12-25 05:27] LABS: BUN/Creatinine Ratio 28 (6-26); Blood Urea Nitrogen 22 mg/dL (8-23); Calcium 9.3 mg/dL (8.6-10.3); Carbon Dioxide 27 mEq/L (23-29); Chloride 102 mEq/L (98-107); Glucose 153 mg/dL (70-105); Magnesium 2.1 mg/dL (1.6-2.6); Osmolality,Calculated 286 (280-300); Potassium 4.5 mEq/L (3.5-5.1); Sodium 135 mEq/L (136-145); eGFR For Non-African Americans > 60 (> 60)
[2018-12-25 07:24] VITALS: BP 148/71
[2018-12-25] MEDS: Furosemide 20 MG TABLET PO SCH (08:24)
[2018-12-25] MEDS: predniSONE 20 MG TABLET PO SCH (08:24)
[2018-12-25] MEDS: Diltiazem CD (24hr) 180 MG CAPSULE PO SCH (08:24)
[2018-12-25] MEDS: Apixaban 5 MG TABLET PO SCH (08:24)
--- NOTE | 2018-12-25 10:14 | Discharge Summary ---
- NOTES TO OUTPATIENT PROVIDER Notes to Outpatient Provider: f/u with PCP in one week. Orders not resulted at time of discharge: Pending orders 12/23/18 19:41 Culture,Blood [BC] Stat Date of Encounter: 12/25/18 Time of Encounter: 10:12 - Discharge Diagnosis (1) Acute exacerbation of chronic obstructive airways disease Priority: Primary Status: Acute (2) Pneumonia Priority: Primary Status: Acute Qualifiers: Pneumonia type: due to unspecified organism Laterality: right Lung location: lower lobe of lung Qualified Code(s): J18.1 - Lobar pneumonia, unspecified organism (3) Respiratory failure with hypoxia Priority: Secondary Status: Acute Qualifiers: Chronicity: acute on chronic Qualified Code(s): J96.21 - Acute and chronic respiratory failure with hypoxia (4) Chronic a-fib Priority: Secondary Status: Chronic (5) CAD (coronary artery disease) Priority: Secondary Status: Chronic Qualifiers: Coronary Disease-Associated Artery/Lesion type: [place] artery [place] vs. transplanted heart: [place] heart Associated angina: without angina Qualified Code(s): I25.10 - Atherosclerotic heart disease of [place] coronary artery without angina pectoris Hospital course: Mr. Vaca is an 82-year-old man with coronary artery disease, atrial fibrillation on eliquis for anti coag and COPD, chronic hypoxic respiratory failure on 4 lit O2, who has been treated as an outpatient for his COPD exacerbation over the past 1 week blood symptoms have not improved and continues to be short of breath. He has been using home nebulizer therapy as well as taking doxycycline and oral steroids but says his breathing has not improved. His CXR showed Rt basilar infiltrate. Pt was admitted in the hospital and started him on systemic steroids and empirical abx Azithromycin. He is currently on 4 lit o2, pt states that's what he uses at home. His breathing is better today and feels like close to baseline. So will d/c him home with PO Abx and tapering dose of steroids today. - Time Spent with Patient Total time spent providing and/or coordinating discharge services: - Discharge Medications Prescriptions: New Azithromycin 250 mg PO DAILY #3 tablet predniSONE [PredniSONE] 40 mg PO DAILY #10 tablet Continue TraZODone 50 mg PO HS Tamsulosin [Flomax] 0.8 mg PO DAILY Diltiazem CD (24hr) [Cardizem CD] 180 mg PO DAILY Budesonide/Formoterol 160/4.5 [Symbicort 160/4.5] 2 puff IH BID Furosemide [Lasix] 20 mg PO DAILY Apixaban [Eliquis] 5 mg PO BID Albuterol Sulfate [Albuterol Inhaler] 2 puff IH Q4HR PRN PRN Reason: sob/weezing Atorvastatin [Lipitor] 20 mg PO HS Doxycycline 100 mg PO BID predniSONE [PredniSONE] 5 mg PO BIDWM Albuterol Neb [Proventil Neb] 2.5 mg IH Q4HR PRN PRN Reason: Dyspnea Tiotropium [Spiriva] 18 mcg IH DAILY Docosahexanoic Acid/Epa [Fish Oil Concentrate Softgel] 1 cap PO DAILY Omeprazole [PriLOSEC] 40 mg PO DAILY Home Medications: Albuterol Neb [Proventil Neb] 2.5 mg IH Q4HR PRN 07/15/15 [History] Docosahexanoic Acid/Epa [Fish Oil Concentrate Softgel] 1 cap PO DAILY 07/15/15 [History] Omeprazole [PriLOSEC] 40 mg PO DAILY 07/15/15 [History] Tiotropium [Spiriva] 18 mcg IH DAILY 07/15/15 [History] TraZODone 50 mg PO HS 09/12/16 [History] Apixaban [Eliquis] 5 mg PO BID 03/25/17 [History] Budesonide/Formoterol 160/4.5 [Symbicort 160/4.5] 2 puff IH BID 03/25/17 [History] Diltiazem CD (24hr) [Cardizem CD] 180 mg PO DAILY 03/25/17 [History] Furosemide [Lasix] 20 mg PO DAILY 03/25/17 [History] Tamsulosin [Flomax] 0.8 mg PO DAILY 03/25/17 [History] Albuterol Sulfate [Albuterol Inhaler] 2 puff IH Q4HR PRN 12/23/18 [History] Atorvastatin [Lipitor] 20 mg PO HS 12/23/18 [History] Doxycycline 100 mg PO BID 12/23/18 [History] predniSONE [PredniSONE] 5 mg PO BIDWM 12/23/18 [History] Azithromycin 250 mg PO DAILY #3 tablet 12/25/18 [Rx] predniSONE [PredniSONE] 40 mg PO DAILY #10 tablet 12/25/18 [Rx] Allergies/Adverse Reactions: Allergy/AdvReac Type Severity Reaction Status Date / Time Penicillins [PCN] Allergy Rash Verified 12/23/18 18:38 Date of admission: 12/23/18 20:34 Primary care physician: PCP NONE Consults: 12/24/18 09:08 Consult to Nurse Navigator [CONS] Routine Comment: COPD - Constitutional Vitals: Temp Pulse Resp BP Pulse Ox 98.0 F 94 18 148/71 93 12/25/18 07:22 12/25/18 07:22 12/25/18 07:22 12/25/18 07:22 12/25/18 07:22 General appearance: Present: A&O X 3, no acute distress, answers questions appropriately Exam: Gen: Alert, awake, Oriented to time,place and person Chest: Diminished breath sounds B/L, Mild wheezing, No crackles, No rales, mild ronchi+ Heart: S1S2+ RRR No murmurs Abd: Soft, NT, BS +, No organomegaly Ext: No edema, pulses are palpable, No calf tenderness Neuro : Benign findings Skin: No rash. - Patient Status Disposition: Home, Self-Care Condition: Good Overall status at discharge: patient is back to baseline - Discharge Instructions Follow Up With: Silver Roberts MD [Partnered Physician] - Forms: ED Satisfaction Letter - Diet and Activity Activity: increase activity as tolerated, wear oxygen at all times Diet: low salt diet
== END 2018-12-25 16:03 | disposition home or self-care (01) ==
LOC: 3BNU 18:33 → EMEROOARM 18:33 → SUATTDRO 20:34 → 3BNU 22:00
PROVIDERS: ADMIT Internal Medicine; ATTEND Family Medicine

== ENCOUNTER 2021-01-23 11:26 | Inpatient (IN) ==
[2021-01-23] MEDS ORDERED: Furosemide 40 MG/4 ML VIAL IVP ONE (11:51)
[2021-01-23 12:34] LABS: Basophils # 0.1 K/mcL (0.0-0.2); Basophils % 0.5 %; Eosinophils # 0.1 K/mcL (0.0-0.6); Eosinophils % 0.5 %; Hemoglobin 13.1 g/dL (12.9-16.9); Immature Granulocytes % 3.5 % (0-4); Lymphocytes # 0.5 K/mcL (0.6-4.6); Mean Corpuscular HGB Conc 32.8 g/dL (31.6-35.5); Mean Corpuscular Hemoglobin 30.2 pg (28.0-33.3); Mean Corpuscular Volume 92.2 fL (83.0-100.0); Mean Platelet Volume 9.6 fL (9.4-12.4); Monocytes # 0.6 K/mcL (0.0-1.3); Monocytes % 6.4 %; Neutrophils # 7.9 K/mcL (1.6-8.9); Nucleated Red Blood Cells 0.2 /100 WBC (0); Platelet Count 121 K/mcL (140-400); Red Blood Count 4.34 M/mcL (4.19-5.50); Red Cell Distribution Width 14.9 % (11.5-14.5); Segmented Neutrophils % 84.1 %; White Blood Count 9.4 K/mcL (4.3-11.1)
[2021-01-23 12:53] LABS: Alanine Aminotransferase 43 Units/L (7-52); Albumin 3.7 g/dL (3.5-5.7); Albumin/Globulin Ratio 2.3 (1.1-2.2); Alkaline Phosphatase 54 Units/L (34-104); Aspartate Amino Transferase 33 Units/L (13-39); BUN/Creatinine Ratio 15 (6-26); Bilirubin,Direct 0.2 mg/dL (0.0-0.2); Bilirubin,Indirect 0.6 mg/dL (0.0-1.0); Bilirubin,Total 0.8 mg/dL (0.3-1.0); Blood Urea Nitrogen 18 mg/dL (8-23); Calcium 9.2 mg/dL (8.6-10.3); Carbon Dioxide 27 mEq/L (23-29); Chloride 101 mEq/L (98-107); Globulin 1.6 g/dL (2.4-3.5); Glucose 171 mg/dL (70-105); Osmolality,Calculated 288 (280-300); Potassium 3.7 mEq/L (3.5-5.1); Sodium 136 mEq/L (136-145); Total Protein 5.3 g/dL (6.4-8.9); eGFR For African Americans > 60 (> 60); eGFR For Non-African Americans 55 (> 60)
[2021-01-23 13:17] LABS: Bilirubin,Urine Negative (Negative); Blood,Urine Negative (Negative); Clarity,Urine Clear (Clear); Color,Urine Yellow (Yellow); Glucose,Urine (UA) Normal (Normal); Hyaline Casts,Urine Many per lpf (None Seen); Ketones,Urine Negative (Negative); Leukocyte Esterase,Urine Trace (Negative); Mucus,Urine Few per lpf (None-Few); Nitrite,Urine Negative (Negative); Protein,Urine 30 mg/dL (Neg-Trace); RBC,Urine 0-3 per hpf (0-3); Squamous Epithelial Cell,Urine Few per hpf (None-Few)
[2021-01-23] MEDS ORDERED: Ondansetron 4 MG/2 ML VIAL IVP PRN (14:15)
[2021-01-23 14:16] LABS: Adenovirus Not Detected (Not Detect); Bordetella Pertussis Not Detected (Not Detect); Chlamydophila pneumoniae Not Detected (Not Detect); Coronavirus 229E Not Detected (Not Detect); Coronavirus HKU1 Not Detected (Not Detect); Coronavirus NL63 Not Detected (Not Detect); Coronavirus OC43 Not Detected (Not Detect); Human Metapneumovirus Not Detected (Not Detect); Human Rhinovirus/Enterovirus Not Detected (Not Detect); Influenza A Subtype 2009 H1 Not Detected (Not Detect); Influenza B Not Detected (Not Detect); Mycoplasma pneumoniae Not Detected (Not Detect); Parainfluenza Virus 1 Not Detected (Not Detect); Parainfluenza Virus 2 Not Detected (Not Detect); Parainfluenza Virus 3 Not Detected (Not Detect); Parainfluenza Virus 4 Not Detected (Not Detect); Respiratory Syncytial Virus Not Detected (Not Detect); SARS-CoV-2 Not Detected (Not Detect)
[2021-01-23 14:23] LABS: Troponin I 0.08 ng/mL (< 0.04)
[2021-01-23] MEDS ORDERED: Aspirin 325 MG TABLET PO ONE (14:42)
[2021-01-23] MEDS: Furosemide 40 MG/4 ML VIAL IVP SCH (18:19)
[2021-01-23] MEDS: Apixaban 5 MG TABLET PO SCH (20:32)
[2021-01-23] MEDS: traZODone 50 MG TABLET PO SCH (20:32)
[2021-01-23] MEDS: Budesonide/Formoterol 160/4.5 1 PUFF INH IH SCH (20:33)
[2021-01-24 05:11] LABS: Hematocrit 36.5 % (37.5-50.1); Hemoglobin 12.1 g/dL (12.9-16.9); Immature Platelets 2.6 % (1.1-6.1); Mean Corpuscular HGB Conc 33.2 g/dL (31.6-35.5); Mean Corpuscular Hemoglobin 30.3 pg (28.0-33.3); Mean Corpuscular Volume 91.5 fL (83.0-100.0); Mean Platelet Volume 9.6 fL (9.4-12.4); Red Blood Count 3.99 M/mcL (4.19-5.50)
[2021-01-24 05:29] LABS: BUN/Creatinine Ratio 16 (6-26); Blood Urea Nitrogen 16 mg/dL (8-23); Calcium 8.7 mg/dL (8.6-10.3); Carbon Dioxide 29 mEq/L (23-29); Chloride 102 mEq/L (98-107); Glucose 141 mg/dL (70-105); Osmolality,Calculated 288 (280-300); Potassium 3.5 mEq/L (3.5-5.1); Sodium 137 mEq/L (136-145); eGFR For African Americans > 60 (> 60); eGFR For Non-African Americans > 60 (> 60)
[2021-01-24 05:31] LABS: Troponin I 0.06 ng/mL (< 0.04)
[2021-01-24] MEDS: Furosemide 40 MG/4 ML VIAL IVP SCH ×2 (08:01→17:33)
[2021-01-24] MEDS: Apixaban 5 MG TABLET PO SCH ×2 (08:02→20:18)
[2021-01-24] MEDS: Finasteride 5 MG TABLET PO SCH (08:02)
[2021-01-24] MEDS: DilTIAZem CD (24hr) 180 MG CAP.ER.24H PO SCH (08:02)
[2021-01-24] MEDS: predniSONE 5 MG TABLET PO SCH (08:02)
[2021-01-24] MEDS: Tiotropium 10 INH DOSE IH SCH (09:52)
[2021-01-24] MEDS: Budesonide/Formoterol 160/4.5 1 PUFF INH IH SCH ×2 (09:52→20:31)
[2021-01-24] MEDS: Melatonin 3 MG TABLET PO PRN (20:18)
[2021-01-24] MEDS: traZODone 50 MG TABLET PO SCH (20:18)
[2021-01-25 02:18] LABS: BUN/Creatinine Ratio 15 (6-26); Blood Urea Nitrogen 17 mg/dL (8-23); Calcium 8.6 mg/dL (8.6-10.3); Carbon Dioxide 29 mEq/L (23-29); Chloride 101 mEq/L (98-107); Glucose 195 mg/dL (70-105); Osmolality,Calculated 291 (280-300); Potassium 3.4 mEq/L (3.5-5.1); Sodium 137 mEq/L (136-145); eGFR For African Americans > 60 (> 60); eGFR For Non-African Americans > 60 (> 60)
[2021-01-25] MEDS: Budesonide/Formoterol 160/4.5 1 PUFF INH IH SCH ×2 (07:21→22:35)
[2021-01-25] MEDS: Albuterol 2.5 MG/3 ML NEBULIZER IH PRN (07:21)
[2021-01-25] MEDS: Tiotropium 10 INH DOSE IH SCH (07:21)
[2021-01-25] MEDS: predniSONE 5 MG TABLET PO SCH (08:11)
[2021-01-25] MEDS: DilTIAZem CD (24hr) 180 MG CAP.ER.24H PO SCH (08:11)
[2021-01-25] MEDS: Finasteride 5 MG TABLET PO SCH (08:11)
[2021-01-25] MEDS: Apixaban 5 MG TABLET PO SCH ×2 (08:11→20:07)
[2021-01-25] MEDS: Furosemide 40 MG/4 ML VIAL IVP SCH (08:12)
[2021-01-25] MEDS ORDERED: Furosemide 240 MG in 0.9 % Sodium Chloride 96 ML IVC SCH (10:15)
[2021-01-25] MEDS: Albuterol 2.5 MG/3 ML NEBULIZER IH SCH ×3 (11:24→22:35)
[2021-01-25] MEDS: Acetaminophen 325 MG TABLET PO PRN (20:07)
[2021-01-25] MEDS: Melatonin 3 MG TABLET PO PRN (22:06)
[2021-01-25] MEDS: traZODone 50 MG TABLET PO SCH (22:06)
[2021-01-26] MEDS: Albuterol 2.5 MG/3 ML NEBULIZER IH SCH ×4 (04:19→22:36)
[2021-01-26 05:41] LABS: BUN/Creatinine Ratio 15 (6-26); Blood Urea Nitrogen 16 mg/dL (8-23); Calcium 8.4 mg/dL (8.6-10.3); Carbon Dioxide 30 mEq/L (23-29); Chloride 102 mEq/L (98-107); Glucose 166 mg/dL (70-105); Magnesium 2.1 mg/dL (1.6-2.6); Osmolality,Calculated 289 (280-300); Potassium 3.5 mEq/L (3.5-5.1); Sodium 137 mEq/L (136-145); eGFR For African Americans > 60 (> 60); eGFR For Non-African Americans > 60 (> 60)
[2021-01-26] MEDS: Acetaminophen 325 MG TABLET PO PRN (05:54)
[2021-01-26] MEDS: Furosemide 240 MG in 0.9 % Sodium Chloride 96 ML IVC SCH (09:54)
[2021-01-26] MEDS: predniSONE 5 MG TABLET PO SCH (09:56)
[2021-01-26] MEDS: Finasteride 5 MG TABLET PO SCH (09:56)
[2021-01-26] MEDS: Apixaban 5 MG TABLET PO SCH ×2 (09:56→19:54)
[2021-01-26] MEDS: DilTIAZem CD (24hr) 180 MG CAP.ER.24H PO SCH (09:56)
[2021-01-26] MEDS: Budesonide/Formoterol 160/4.5 1 PUFF INH IH SCH ×2 (09:59→22:36)
[2021-01-26] MEDS: Tiotropium 10 INH DOSE IH SCH (09:59)
[2021-01-26] MEDS: traZODone 50 MG TABLET PO SCH (19:54)
[2021-01-26] MEDS: Melatonin 3 MG TABLET PO PRN (23:58)
[2021-01-27] MEDS: Albuterol 2.5 MG/3 ML NEBULIZER IH SCH (03:57)
[2021-01-27 05:15] LABS: BUN/Creatinine Ratio 15 (6-26); Blood Urea Nitrogen 17 mg/dL (8-23); Calcium 8.7 mg/dL (8.6-10.3); Carbon Dioxide 30 mEq/L (23-29); Chloride 99 mEq/L (98-107); Glucose 162 mg/dL (70-105); Osmolality,Calculated 291 (280-300); Potassium 3.3 mEq/L (3.5-5.1); Sodium 138 mEq/L (136-145); eGFR For African Americans > 60 (> 60); eGFR For Non-African Americans > 60 (> 60)
[2021-01-27] MEDS: Budesonide/Formoterol 160/4.5 1 PUFF INH IH SCH ×2 (07:42→23:09)
[2021-01-27] MEDS: Tiotropium 10 INH DOSE IH SCH (07:43)
[2021-01-27] MEDS: Albuterol 2.5 MG/3 ML NEBULIZER IH PRN (07:46)
[2021-01-27] MEDS: predniSONE 5 MG TABLET PO SCH (07:51)
[2021-01-27] MEDS: Finasteride 5 MG TABLET PO SCH (07:51)
[2021-01-27] MEDS: DilTIAZem CD (24hr) 180 MG CAP.ER.24H PO SCH (07:51)
[2021-01-27] MEDS: Apixaban 5 MG TABLET PO SCH ×2 (07:52→19:58)
[2021-01-27] MEDS: Furosemide 240 MG in 0.9 % Sodium Chloride 96 ML IVC SCH (08:16)
[2021-01-27] MEDS ORDERED: Perflutren Lipid Microsphere 1.3 ML in 0.9 % Sodium Chloride 8.7 ML IVP PRN (13:24)
[2021-01-27] MEDS: traZODone 50 MG TABLET PO SCH (19:58)
[2021-01-27] MEDS: Melatonin 3 MG TABLET PO PRN (19:58)
[2021-01-28 06:47] LABS: BUN/Creatinine Ratio 17 (6-26); Blood Urea Nitrogen 19 mg/dL (8-23); Calcium 8.4 mg/dL (8.6-10.3); Carbon Dioxide 31 mEq/L (23-29); Chloride 100 mEq/L (98-107); Glucose 146 mg/dL (70-105); Osmolality,Calculated 291 (280-300); Phosphorous 2.4 mg/dL (2.7-4.5); Potassium 3.3 mEq/L (3.5-5.1); Sodium 138 mEq/L (136-145); eGFR For African Americans > 60 (> 60); eGFR For Non-African Americans > 60 (> 60)
[2021-01-28] MEDS: Finasteride 5 MG TABLET PO SCH (08:40)
[2021-01-28] MEDS: DilTIAZem CD (24hr) 180 MG CAP.ER.24H PO SCH (08:40)
[2021-01-28] MEDS: predniSONE 5 MG TABLET PO SCH (08:40)
[2021-01-28] MEDS: Apixaban 5 MG TABLET PO SCH ×2 (08:40→21:05)
[2021-01-28] MEDS: Furosemide 240 MG in 0.9 % Sodium Chloride 96 ML IVC SCH (08:41)
[2021-01-28] MEDS: Budesonide/Formoterol 160/4.5 1 PUFF INH IH SCH ×2 (09:12→20:14)
[2021-01-28] MEDS: Tiotropium 10 INH DOSE IH SCH (09:13)
[2021-01-28] MEDS: polyethylene glycoL 3350 17 GM POWD.PACK PO SCH (12:29)
[2021-01-28] MEDS: traZODone 50 MG TABLET PO SCH (21:05)
[2021-01-28] MEDS: Melatonin 3 MG TABLET PO PRN (21:05)
[2021-01-28] MEDS: Sennosides/Docusate Sodium TABLET PO SCH (21:05)
[2021-01-29] MEDS: Budesonide/Formoterol 160/4.5 1 PUFF INH IH SCH ×2 (08:05→22:02)
[2021-01-29] MEDS: Tiotropium 10 INH DOSE IH SCH (08:05)
[2021-01-29] MEDS: Finasteride 5 MG TABLET PO SCH (08:41)
[2021-01-29] MEDS: Apixaban 5 MG TABLET PO SCH ×2 (08:41→20:52)
[2021-01-29] MEDS: DilTIAZem CD (24hr) 180 MG CAP.ER.24H PO SCH (08:42)
[2021-01-29] MEDS: Sennosides/Docusate Sodium TABLET PO SCH ×2 (08:42→20:53)
[2021-01-29] MEDS: Furosemide 40 MG/4 ML VIAL IVP SCH ×2 (08:42→20:51)
[2021-01-29] MEDS: predniSONE 5 MG TABLET PO SCH (08:42)
[2021-01-29] MEDS: polyethylene glycoL 3350 17 GM POWD.PACK PO SCH (08:43)
[2021-01-29 09:09] LABS: BUN/Creatinine Ratio 20 (6-26); Blood Urea Nitrogen 21 mg/dL (8-23); Calcium 8.5 mg/dL (8.6-10.3); Carbon Dioxide 32 mEq/L (23-29); Chloride 101 mEq/L (98-107); Glucose 152 mg/dL (70-105); Osmolality,Calculated 292 (280-300); Phosphorous 2.6 mg/dL (2.7-4.5); Potassium 3.4 mEq/L (3.5-5.1); Sodium 138 mEq/L (136-145); eGFR For African Americans > 60 (> 60); eGFR For Non-African Americans > 60 (> 60)
[2021-01-29] MEDS: Melatonin 3 MG TABLET PO PRN (20:52)
[2021-01-29] MEDS: traZODone 50 MG TABLET PO SCH (20:53)
[2021-01-30 03:06] LABS: BUN/Creatinine Ratio 21 (6-26); Blood Urea Nitrogen 23 mg/dL (8-23); Calcium 8.7 mg/dL (8.6-10.3); Carbon Dioxide 29 mEq/L (23-29); Chloride 100 mEq/L (98-107); Glucose 170 mg/dL (70-105); Osmolality,Calculated 292 (280-300); Potassium 3.5 mEq/L (3.5-5.1); Sodium 137 mEq/L (136-145); eGFR For African Americans > 60 (> 60); eGFR For Non-African Americans > 60 (> 60)
[2021-01-30 07:14] VITALS: BP 108/70
[2021-01-30] MEDS: polyethylene glycoL 3350 17 GM POWD.PACK PO SCH (07:42)
[2021-01-30] MEDS: Furosemide 40 MG/4 ML VIAL IVP SCH (07:43)
[2021-01-30] MEDS: DilTIAZem CD (24hr) 180 MG CAP.ER.24H PO SCH (07:43)
[2021-01-30] MEDS: Finasteride 5 MG TABLET PO SCH (07:44)
[2021-01-30] MEDS: Apixaban 5 MG TABLET PO SCH (07:44)
[2021-01-30] MEDS: predniSONE 5 MG TABLET PO SCH (07:44)
[2021-01-30] MEDS: Sennosides/Docusate Sodium TABLET PO SCH (07:44)
[2021-01-30] MEDS: Budesonide/Formoterol 160/4.5 1 PUFF INH IH SCH (07:55)
[2021-01-30] MEDS: Tiotropium 10 INH DOSE IH SCH (07:56)
== END 2021-01-30 11:12 | disposition home health service (06) | DRG 280 ==
LOC: SUATTDRO → 3BNU 11:26 → EMEROOARM 11:26 → SUATTDRO 14:00 → 3BNU 14:48 → SUATTDRO 01-24 15:43
PROVIDERS: ADMIT Internal Medicine; ATTEND Internal Medicine

== ENCOUNTER 2021-11-30 10:17 | Inpatient (IN) ==
[2021-11-30] MEDS ORDERED: Ondansetron 4 MG/2 ML VIAL IVP PRN (16:43)
[2021-11-30] MEDS ORDERED: Naloxone 0.4 MG/ML INJ IVP PRN (16:43)
[2021-11-30] MEDS: Budesonide/Formoterol 160/4.5 1 PUFF INH IH SCH (20:24)
[2021-11-30] MEDS: Acetaminophen 325 MG TABLET PO PRN (20:41)
[2021-12-01] MEDS: Acetaminophen 325 MG TABLET PO PRN ×2 (03:55→21:32)
[2021-12-01] MEDS: Melatonin 3 MG TABLET PO PRN (03:55)
[2021-12-01 05:17] LABS: Hematocrit 33.8 % (37.5-50.1); Hemoglobin 11.1 g/dL (12.9-16.9); Mean Corpuscular HGB Conc 32.8 g/dL (31.6-35.5); Mean Corpuscular Hemoglobin 29.5 pg (28.0-33.3); Mean Corpuscular Volume 89.9 fL (83.0-100.0); Mean Platelet Volume 9.7 fL (9.4-12.4); Platelet Count 227 K/mcL (140-400); Red Blood Count 3.76 M/mcL (4.19-5.50)
[2021-12-01 05:35] LABS: BUN/Creatinine Ratio 26 (6-26); Blood Urea Nitrogen 29 mg/dL (8-23); Calcium 9.8 mg/dL (8.6-10.3); Carbon Dioxide 26 mEq/L (23-29); Chloride 104 mEq/L (98-107); Glucose 122 mg/dL (70-105); Osmolality,Calculated 291 (280-300); Potassium 3.6 mEq/L (3.5-5.1); Sodium 137 mEq/L (136-145); eGFR For African Americans > 60 (> 60); eGFR For Non-African Americans > 60 (> 60)
[2021-12-01] MEDS: Budesonide/Formoterol 160/4.5 1 PUFF INH IH SCH ×2 (08:04→20:10)
[2021-12-01] MEDS ORDERED: Tiotropium 10 INH DOSE IH ONE (08:08)
[2021-12-01] MEDS: Tiotropium 10 INH DOSE IH SCH (08:09)
[2021-12-01] MEDS: DilTIAZem CD (24hr) 180 MG CAP.ER.24H PO SCH (08:10)
[2021-12-01] MEDS: Torsemide 20 MG TABLET PO SCH ×2 (08:10→17:34)
[2021-12-01] MEDS: Finasteride 5 MG TABLET PO SCH (08:10)
[2021-12-01] MEDS: predniSONE 5 MG TABLET PO SCH (08:11)
[2021-12-01] MEDS ORDERED: *HR* FentaNYL (PF) 100 MCG/2 ML VIAL IVP PRN (10:42)
[2021-12-01] MEDS ORDERED: Lidocaine Viscous Oral Soln 15 ML SOLUTION MM PRN (10:42)
[2021-12-01] MEDS ORDERED: 0.9 % Sodium Chloride 500 ML IVC ONE (10:43)
[2021-12-01] MEDS: *HR* Midazolam HCl 5 MG/5 ML VIAL IVP PRN ×2 (11:05→11:15)
[2021-12-01] MEDS: DAPTOmycin 750 MG in 0.9 % Sodium Chloride 100 ML IVPB SCH (12:17)
[2021-12-01] MEDS: Apixaban 5 MG TABLET PO SCH (21:31)
[2021-12-02 02:30] LABS: Hematocrit 34.4 % (37.5-50.1); Hemoglobin 11.3 g/dL (12.9-16.9); Mean Corpuscular HGB Conc 32.8 g/dL (31.6-35.5); Mean Corpuscular Hemoglobin 29.6 pg (28.0-33.3); Mean Corpuscular Volume 90.1 fL (83.0-100.0); Mean Platelet Volume 10.2 fL (9.4-12.4); Platelet Count 200 K/mcL (140-400); Red Blood Count 3.82 M/mcL (4.19-5.50); Red Cell Distribution Width 15.1 % (11.5-14.5); White Blood Count 13.2 K/mcL (4.3-11.1)
[2021-12-02 02:48] LABS: Blood Urea Nitrogen 29 mg/dL (8-23); Calcium 9.6 mg/dL (8.6-10.3); Carbon Dioxide 24 mEq/L (23-29); Chloride 106 mEq/L (98-107); Glucose 150 mg/dL (70-105); Osmolality,Calculated 295 (280-300); Potassium 3.8 mEq/L (3.5-5.1); Sodium 138 mEq/L (136-145)
[2021-12-02 04:07] LABS: BUN/Creatinine Ratio 26 (6-26); eGFR For African Americans > 60 (> 60); eGFR For Non-African Americans > 60 (> 60)
[2021-12-02] MEDS: Acetaminophen 325 MG TABLET PO PRN (05:37)
[2021-12-02] MEDS: Tiotropium 10 INH DOSE IH SCH (08:22)
[2021-12-02] MEDS: Budesonide/Formoterol 160/4.5 1 PUFF INH IH SCH ×2 (08:23→19:59)
[2021-12-02] MEDS ORDERED: levoFLOXacin 750 MG/150 ML 750 MG/150 ML BAG IVPB SCH (09:00)
[2021-12-02] MEDS: DilTIAZem CD (24hr) 180 MG CAP.ER.24H PO SCH (09:52)
[2021-12-02] MEDS: predniSONE 5 MG TABLET PO SCH (09:52)
[2021-12-02] MEDS: Torsemide 20 MG TABLET PO SCH ×2 (09:52→16:59)
[2021-12-02] MEDS: Finasteride 5 MG TABLET PO SCH (09:52)
[2021-12-02] MEDS: Apixaban 5 MG TABLET PO SCH ×2 (09:52→21:00)
[2021-12-02] MEDS: DAPTOmycin 750 MG in 0.9 % Sodium Chloride 100 ML IVPB SCH (09:57)
[2021-12-02] MEDS ORDERED: Saline Nasal Spray 44 ML BOTTLE NS PRN (10:56)
[2021-12-02] MEDS ORDERED: Isovue-370 500 ML BOTTLE IVP ONE (11:00)
[2021-12-02] MEDS ORDERED: Vancomycin 1,500 MG/265 ML IV.SOLN IVPB SCH (12:00)
[2021-12-02] MEDS ORDERED: Gentamicin 130 MG in 0.9 % Sodium Chloride 100 ML IVPB ONE (12:00)
[2021-12-02] MEDS: cefTRIAXone 2,000 MG in 0.9 % Sodium Chloride 20 ML IVP SCH (16:06)
[2021-12-02] MEDS: Ampicillin 2,000 MG in 0.9 % Sodium Chloride Mini Bag 100 ML IVPB SCH ×2 (16:58→21:00)
[2021-12-03] MEDS: Ampicillin 2,000 MG in 0.9 % Sodium Chloride Mini Bag 100 ML IVPB SCH ×6 (00:16→20:06)
[2021-12-03] MEDS ORDERED: Gentamicin 110 MG in 0.9 % Sodium Chloride 100 ML IVPB SCH (01:00)
[2021-12-03 03:06] LABS: Hematocrit 33.5 % (37.5-50.1); Hemoglobin 10.8 g/dL (12.9-16.9); Mean Corpuscular HGB Conc 32.2 g/dL (31.6-35.5); Mean Corpuscular Hemoglobin 29.2 pg (28.0-33.3); Mean Corpuscular Volume 90.5 fL (83.0-100.0); Mean Platelet Volume 9.5 fL (9.4-12.4); Platelet Count 187 K/mcL (140-400); Red Cell Distribution Width 15.1 % (11.5-14.5); White Blood Count 12.6 K/mcL (4.3-11.1)
[2021-12-03 03:21] LABS: BUN/Creatinine Ratio 22 (6-26); Blood Urea Nitrogen 24 mg/dL (8-23); Calcium 9.1 mg/dL (8.6-10.3); Carbon Dioxide 30 mEq/L (23-29); Chloride 106 mEq/L (98-107); Glucose 138 mg/dL (70-105); Osmolality,Calculated 298 (280-300); Potassium 3.5 mEq/L (3.5-5.1); Sodium 141 mEq/L (136-145); eGFR For African Americans > 60 (> 60); eGFR For Non-African Americans > 60 (> 60)
[2021-12-03] MEDS: cefTRIAXone 2,000 MG in 0.9 % Sodium Chloride 20 ML IVP SCH ×2 (04:26→15:53)
[2021-12-03] MEDS: Melatonin 3 MG TABLET PO PRN (04:26)
[2021-12-03] MEDS: Tiotropium 10 INH DOSE IH SCH (07:49)
[2021-12-03] MEDS: Budesonide/Formoterol 160/4.5 1 PUFF INH IH SCH ×2 (07:50→19:48)
[2021-12-03] MEDS: predniSONE 5 MG TABLET PO SCH (08:48)
[2021-12-03] MEDS: Finasteride 5 MG TABLET PO SCH (08:48)
[2021-12-03] MEDS: Torsemide 20 MG TABLET PO SCH ×2 (08:48→16:00)
[2021-12-03] MEDS: DilTIAZem CD (24hr) 180 MG CAP.ER.24H PO SCH (08:48)
[2021-12-03] MEDS: Apixaban 5 MG TABLET PO SCH ×2 (08:48→20:05)
[2021-12-04] MEDS: Ampicillin 2,000 MG in 0.9 % Sodium Chloride Mini Bag 100 ML IVPB SCH ×7 (00:48→23:30)
[2021-12-04] MEDS: Acetaminophen 325 MG TABLET PO PRN ×2 (00:50→23:30)
[2021-12-04] MEDS: Melatonin 3 MG TABLET PO PRN ×2 (00:51→20:28)
[2021-12-04 02:17] LABS: A.calcoaceticus-baumannii cplx Not Detected (Not Detect); Bacteroides fragilis by PCR Not Detected (Not Detect); Candida albicans by PCR Not Detected (Not Detect); Candida auris by PCR Not Detected (Not Detect); Candida glabrata by PCR Not Detected (Not Detect); Enterobacter cloacae Cmplx PCR Not Detected (Not Detect); Enterobacterales by PCR Not Detected (Not Detect); Enterococcus faecalis by PCR DETECTED (Not Detect); Enterococcus faecium by PCR Not Detected (Not Detect); Escherichia coli by PCR Not Detected (Not Detect); Klebs. pneumoniae group by PCR Not Detected (Not Detect); Klebsiella aerogenes by PCR Not Detected (Not Detect); Klebsiella oxytoca by PCR Not Detected (Not Detect); Proteus by PCR Not Detected (Not Detect); Pseudomonas aeruginosa by PCR Not Detected (Not Detect); Salmonella species by PCR Not Detected (Not Detect); Serratia marcescens by PCR Not Detected (Not Detect); Staph epidermidis by PCR Not Detected (Not Detect); Staph lugdunensis by PCR Not Detected (Not Detect); Staphylococcus aureus by PCR Not Detected (Not Detect); Staphylococcus by PCR Not Detected (Not Detect); Stenotrophomonas maltophilia Not Detected (Not Detect); Streptococcus agalactiae(B)PCR Not Detected (Not Detect); Streptococcus by PCR Not Detected (Not Detect); Streptococcus pneumoniae PCR Not Detected (Not Detect); Streptococcus pyogenes (A) PCR Not Detected (Not Detect); vanA/B Vancomycin-Resist Genes Not Detected (Not Detect)
[2021-12-04 02:18] LABS: Candida krusei by PCR Not Detected (Not Detect); Candida parapsilosis by PCR Not Detected (Not Detect); Candida tropicalis by PCR Not Detected (Not Detect); Crypto. neoformans/gattii PCR Not Detected (Not Detect)
[2021-12-04] MEDS: cefTRIAXone 2,000 MG in 0.9 % Sodium Chloride 20 ML IVP SCH ×2 (02:18→13:08)
[2021-12-04 06:59] LABS: Hematocrit 31.9 % (37.5-50.1); Hemoglobin 10.7 g/dL (12.9-16.9); Mean Corpuscular HGB Conc 33.5 g/dL (31.6-35.5); Mean Corpuscular Hemoglobin 30.1 pg (28.0-33.3); Mean Corpuscular Volume 89.6 fL (83.0-100.0); Mean Platelet Volume 9.8 fL (9.4-12.4); Platelet Count 201 K/mcL (140-400); Red Blood Count 3.56 M/mcL (4.19-5.50); White Blood Count 12.6 K/mcL (4.3-11.1)
[2021-12-04 07:07] LABS: BUN/Creatinine Ratio 19 (6-26); Blood Urea Nitrogen 20 mg/dL (8-23); Calcium 9.1 mg/dL (8.6-10.3); Carbon Dioxide 29 mEq/L (23-29); Chloride 106 mEq/L (98-107); Glucose 133 mg/dL (70-105); Osmolality,Calculated 295 (280-300); Potassium 3.5 mEq/L (3.5-5.1); Sodium 140 mEq/L (136-145); eGFR For African Americans > 60 (> 60); eGFR For Non-African Americans > 60 (> 60)
[2021-12-04] MEDS: Tiotropium 10 INH DOSE IH SCH (07:57)
[2021-12-04] MEDS: Budesonide/Formoterol 160/4.5 1 PUFF INH IH SCH ×2 (07:59→20:18)
[2021-12-04] MEDS: DilTIAZem CD (24hr) 180 MG CAP.ER.24H PO SCH (08:37)
[2021-12-04] MEDS: Finasteride 5 MG TABLET PO SCH (08:37)
[2021-12-04] MEDS: Apixaban 5 MG TABLET PO SCH ×2 (08:37→20:27)
[2021-12-04] MEDS: Torsemide 20 MG TABLET PO SCH ×2 (08:38→16:52)
[2021-12-04] MEDS: predniSONE 5 MG TABLET PO SCH (08:38)
[2021-12-04] MEDS ORDERED: polyethylene glycoL 3350 17 GM POWD.PACK PO PRN (16:38)
[2021-12-04] MEDS: Sennosides/Docusate Sodium TABLET PO PRN (16:52)
[2021-12-04] MEDS: Gabapentin 300 MG CAPSULE PO SCH (20:43)
[2021-12-05] MEDS: cefTRIAXone 2,000 MG in 0.9 % Sodium Chloride 20 ML IVP SCH ×2 (01:57→12:34)
[2021-12-05] MEDS: Ampicillin 2,000 MG in 0.9 % Sodium Chloride Mini Bag 100 ML IVPB SCH ×6 (04:33→23:59)
[2021-12-05 07:07] LABS: Basophils % 0.3 %; Eosinophils # 0.1 K/mcL (0.0-0.6); Eosinophils % 1.2 %; Hemoglobin 10.3 g/dL (12.9-16.9); Immature Granulocytes % 3.4 % (0-4); Lymphocytes # 0.7 K/mcL (0.6-4.6); Lymphocytes % 6.1 %; Mean Corpuscular HGB Conc 32.2 g/dL (31.6-35.5); Mean Corpuscular Hemoglobin 29.6 pg (28.0-33.3); Mean Platelet Volume 9.8 fL (9.4-12.4); Monocytes # 0.6 K/mcL (0.0-1.3); Monocytes % 5.8 %; Neutrophils # 9.2 K/mcL (1.6-8.9); Platelet Count 195 K/mcL (140-400); Red Blood Count 3.48 M/mcL (4.19-5.50); Red Cell Distribution Width 15.1 % (11.5-14.5); Segmented Neutrophils % 83.2 %; White Blood Count 11.1 K/mcL (4.3-11.1)
[2021-12-05 07:38] LABS: BUN/Creatinine Ratio 16 (6-26); Blood Urea Nitrogen 18 mg/dL (8-23); Carbon Dioxide 27 mEq/L (23-29); Chloride 106 mEq/L (98-107); Glucose 112 mg/dL (70-105); Osmolality,Calculated 291 (280-300); Potassium 3.6 mEq/L (3.5-5.1); Sodium 139 mEq/L (136-145); eGFR For African Americans > 60 (> 60); eGFR For Non-African Americans > 60 (> 60)
[2021-12-05] MEDS: Budesonide/Formoterol 160/4.5 1 PUFF INH IH SCH ×2 (07:58→20:00)
[2021-12-05] MEDS: Tiotropium 10 INH DOSE IH SCH (07:58)
[2021-12-05] MEDS: Gabapentin 300 MG CAPSULE PO SCH ×2 (09:11→20:45)
[2021-12-05] MEDS: DilTIAZem CD (24hr) 180 MG CAP.ER.24H PO SCH (09:12)
[2021-12-05] MEDS: predniSONE 5 MG TABLET PO SCH (09:12)
[2021-12-05] MEDS: Torsemide 20 MG TABLET PO SCH ×2 (09:13→16:15)
[2021-12-05] MEDS: Cyanocobalamin (B-12) 1,000 MCG TABLET PO SCH (09:13)
[2021-12-05] MEDS: Finasteride 5 MG TABLET PO SCH (09:13)
[2021-12-05] MEDS: Apixaban 5 MG TABLET PO SCH ×2 (09:13→20:45)
[2021-12-05] MEDS: Sennosides/Docusate Sodium TABLET PO PRN (16:24)
[2021-12-05] MEDS: Lactulose Oral Soln 20 GM/30 ML UDC PO PRN (20:45)
[2021-12-05] MEDS: Melatonin 3 MG TABLET PO PRN (20:45)
[2021-12-06 01:51] LABS: Basophils % 0.2 %; Eosinophils # 0.1 K/mcL (0.0-0.6); Eosinophils % 0.7 %; Hematocrit 32.6 % (37.5-50.1); Hemoglobin 10.4 g/dL (12.9-16.9); Immature Granulocytes % 2.5 % (0-4); Lymphocytes # 0.6 K/mcL (0.6-4.6); Lymphocytes % 4.8 %; Mean Corpuscular HGB Conc 31.9 g/dL (31.6-35.5); Mean Corpuscular Hemoglobin 29.1 pg (28.0-33.3); Mean Corpuscular Volume 91.3 fL (83.0-100.0); Mean Platelet Volume 9.6 fL (9.4-12.4); Monocytes # 0.7 K/mcL (0.0-1.3); Monocytes % 5.7 %; Neutrophils # 10.7 K/mcL (1.6-8.9); Platelet Count 199 K/mcL (140-400); Red Blood Count 3.57 M/mcL (4.19-5.50); Red Cell Distribution Width 14.7 % (11.5-14.5); Segmented Neutrophils % 86.1 %; White Blood Count 12.4 K/mcL (4.3-11.1)
[2021-12-06 02:41] LABS: BUN/Creatinine Ratio 17 (6-26); Blood Urea Nitrogen 19 mg/dL (8-23); Calcium 9.1 mg/dL (8.6-10.3); Carbon Dioxide 28 mEq/L (23-29); Chloride 104 mEq/L (98-107); Glucose 122 mg/dL (70-105); Osmolality,Calculated 290 (280-300); Potassium 3.6 mEq/L (3.5-5.1); Sodium 138 mEq/L (136-145); eGFR For African Americans > 60 (> 60); eGFR For Non-African Americans > 60 (> 60)
[2021-12-06] MEDS: cefTRIAXone 2,000 MG in 0.9 % Sodium Chloride 20 ML IVP SCH ×2 (04:49→15:24)
[2021-12-06] MEDS: Ampicillin 2,000 MG in 0.9 % Sodium Chloride Mini Bag 100 ML IVPB SCH ×5 (04:50→20:27)
[2021-12-06] MEDS: Budesonide/Formoterol 160/4.5 1 PUFF INH IH SCH ×2 (07:38→20:01)
[2021-12-06] MEDS: Tiotropium 10 INH DOSE IH SCH (07:40)
[2021-12-06] MEDS: DilTIAZem CD (24hr) 180 MG CAP.ER.24H PO SCH (09:28)
[2021-12-06] MEDS: Apixaban 5 MG TABLET PO SCH ×2 (09:28→20:28)
[2021-12-06] MEDS: Cyanocobalamin (B-12) 1,000 MCG TABLET PO SCH (09:30)
[2021-12-06] MEDS: Torsemide 20 MG TABLET PO SCH ×2 (09:31→17:22)
[2021-12-06] MEDS: predniSONE 5 MG TABLET PO SCH (09:32)
[2021-12-06] MEDS: Finasteride 5 MG TABLET PO SCH (09:32)
[2021-12-06] MEDS: Gabapentin 300 MG CAPSULE PO SCH ×2 (09:32→20:28)
[2021-12-06] MEDS: Lactulose Oral Soln 20 GM/30 ML UDC PO PRN (09:33)
[2021-12-07] MEDS: Ampicillin 2,000 MG in 0.9 % Sodium Chloride Mini Bag 100 ML IVPB SCH ×7 (00:59→23:53)
[2021-12-07 03:16] LABS: Basophils % 0.3 %; Eosinophils # 0.1 K/mcL (0.0-0.6); Eosinophils % 0.7 %; Hemoglobin 10.2 g/dL (12.9-16.9); Immature Granulocytes % 1.7 % (0-4); Lymphocytes # 0.6 K/mcL (0.6-4.6); Lymphocytes % 4.3 %; Mean Corpuscular HGB Conc 32.9 g/dL (31.6-35.5); Mean Corpuscular Hemoglobin 29.9 pg (28.0-33.3); Mean Corpuscular Volume 90.9 fL (83.0-100.0); Mean Platelet Volume 9.8 fL (9.4-12.4); Monocytes # 0.9 K/mcL (0.0-1.3); Monocytes % 6.4 %; Neutrophils # 12.4 K/mcL (1.6-8.9); Platelet Count 223 K/mcL (140-400); Red Blood Count 3.41 M/mcL (4.19-5.50); Red Cell Distribution Width 14.9 % (11.5-14.5); Segmented Neutrophils % 86.6 %; White Blood Count 14.3 K/mcL (4.3-11.1)
[2021-12-07 03:28] LABS: INR 1.7; Prothrombin Time 18.6 Seconds (9.4-12.1)
[2021-12-07 03:31] LABS: Activated Partial Thrombo Time 34.3 Seconds (26.0-36.0)
[2021-12-07 03:33] LABS: BUN/Creatinine Ratio 13 (6-26); Blood Urea Nitrogen 16 mg/dL (8-23); Calcium 9.2 mg/dL (8.6-10.3); Carbon Dioxide 30 mEq/L (23-29); Chloride 105 mEq/L (98-107); Glucose 115 mg/dL (70-105); Osmolality,Calculated 292 (280-300); Potassium 3.4 mEq/L (3.5-5.1); Sodium 140 mEq/L (136-145); eGFR For African Americans > 60 (> 60); eGFR For Non-African Americans 55 (> 60)
[2021-12-07] MEDS: cefTRIAXone 2,000 MG in 0.9 % Sodium Chloride 20 ML IVP SCH ×2 (03:53→15:30)
[2021-12-07] MEDS: Budesonide/Formoterol 160/4.5 1 PUFF INH IH SCH ×2 (07:48→20:16)
[2021-12-07] MEDS: Tiotropium 10 INH DOSE IH SCH (07:49)
[2021-12-07] MEDS: Gabapentin 300 MG CAPSULE PO SCH ×2 (08:46→20:37)
[2021-12-07] MEDS: DilTIAZem CD (24hr) 180 MG CAP.ER.24H PO SCH (08:46)
[2021-12-07] MEDS: Torsemide 20 MG TABLET PO SCH ×2 (08:46→16:48)
[2021-12-07] MEDS: Apixaban 5 MG TABLET PO SCH ×2 (08:46→20:37)
[2021-12-07] MEDS: Finasteride 5 MG TABLET PO SCH (08:46)
[2021-12-07] MEDS: predniSONE 5 MG TABLET PO SCH (08:46)
[2021-12-07] MEDS: Cyanocobalamin (B-12) 1,000 MCG TABLET PO SCH (08:47)
[2021-12-07] MEDS: Melatonin 3 MG TABLET PO PRN (20:38)
[2021-12-08] MEDS: cefTRIAXone 2,000 MG in 0.9 % Sodium Chloride 20 ML IVP SCH ×2 (04:14→12:25)
[2021-12-08] MEDS: Ampicillin 2,000 MG in 0.9 % Sodium Chloride Mini Bag 100 ML IVPB SCH ×6 (04:15→23:26)
[2021-12-08 06:00] LABS: Basophils # 0.1 K/mcL (0.0-0.2); Basophils % 0.5 %; Eosinophils # 0.1 K/mcL (0.0-0.6); Eosinophils % 0.9 %; Hematocrit 29.4 % (37.5-50.1); Hemoglobin 9.4 g/dL (12.9-16.9); Immature Granulocytes % 1.9 % (0-4); Lymphocytes # 0.8 K/mcL (0.6-4.6); Lymphocytes % 6.6 %; Mean Corpuscular Hemoglobin 29.1 pg (28.0-33.3); Mean Platelet Volume 9.6 fL (9.4-12.4); Monocytes # 0.9 K/mcL (0.0-1.3); Monocytes % 7.3 %; Neutrophils # 10.3 K/mcL (1.6-8.9); Platelet Count 212 K/mcL (140-400); Red Blood Count 3.23 M/mcL (4.19-5.50); Segmented Neutrophils % 82.8 %; White Blood Count 12.4 K/mcL (4.3-11.1)
[2021-12-08 06:24] LABS: BUN/Creatinine Ratio 16 (6-26); Blood Urea Nitrogen 18 mg/dL (8-23); Calcium 8.8 mg/dL (8.6-10.3); Carbon Dioxide 30 mEq/L (23-29); Chloride 105 mEq/L (98-107); Glucose 121 mg/dL (70-105); Osmolality,Calculated 291 (280-300); Potassium 3.7 mEq/L (3.5-5.1); Sodium 139 mEq/L (136-145); eGFR For African Americans > 60 (> 60); eGFR For Non-African Americans > 60 (> 60)
[2021-12-08] MEDS: Tiotropium 10 INH DOSE IH SCH (08:00)
[2021-12-08] MEDS: Budesonide/Formoterol 160/4.5 1 PUFF INH IH SCH ×2 (08:01→20:43)
[2021-12-08] MEDS: DilTIAZem CD (24hr) 180 MG CAP.ER.24H PO SCH (09:08)
[2021-12-08] MEDS: Torsemide 20 MG TABLET PO SCH ×2 (09:08→16:33)
[2021-12-08] MEDS: Finasteride 5 MG TABLET PO SCH (09:08)
[2021-12-08] MEDS: Apixaban 5 MG TABLET PO SCH ×2 (09:08→20:11)
[2021-12-08] MEDS: Cyanocobalamin (B-12) 1,000 MCG TABLET PO SCH (09:09)
[2021-12-08] MEDS: predniSONE 5 MG TABLET PO SCH (09:09)
[2021-12-08] MEDS: Gabapentin 300 MG CAPSULE PO SCH ×2 (09:09→20:11)
[2021-12-08] MEDS ORDERED: Gabapentin 100 MG CAPSULE PO SCH (15:00)
[2021-12-08] MEDS: Lactulose Oral Soln 20 GM/30 ML UDC PO PRN (20:11)
[2021-12-08] MEDS: Melatonin 3 MG TABLET PO PRN (20:11)
[2021-12-09] MEDS: cefTRIAXone 2,000 MG in 0.9 % Sodium Chloride 20 ML IVP SCH ×2 (02:00→14:53)
[2021-12-09] MEDS: Ampicillin 2,000 MG in 0.9 % Sodium Chloride Mini Bag 100 ML IVPB SCH ×5 (03:40→20:51)
[2021-12-09 06:04] LABS: Basophils # 0.1 K/mcL (0.0-0.2); Basophils % 0.4 %; Eosinophils # 0.1 K/mcL (0.0-0.6); Eosinophils % 0.8 %; Hematocrit 28.4 % (37.5-50.1); Hemoglobin 9.5 g/dL (12.9-16.9); Immature Granulocytes % 1.8 % (0-4); Lymphocytes # 0.8 K/mcL (0.6-4.6); Lymphocytes % 6.4 %; Mean Corpuscular HGB Conc 33.5 g/dL (31.6-35.5); Mean Corpuscular Hemoglobin 30.7 pg (28.0-33.3); Mean Corpuscular Volume 91.9 fL (83.0-100.0); Mean Platelet Volume 9.9 fL (9.4-12.4); Monocytes % 7.7 %; Neutrophils # 10.5 K/mcL (1.6-8.9); Platelet Count 253 K/mcL (140-400); Red Blood Count 3.09 M/mcL (4.19-5.50); Red Cell Distribution Width 15.1 % (11.5-14.5); Segmented Neutrophils % 82.9 %; White Blood Count 12.6 K/mcL (4.3-11.1)
[2021-12-09] MEDS: Apixaban 5 MG TABLET PO SCH ×2 (08:28→20:51)
[2021-12-09] MEDS: Torsemide 20 MG TABLET PO SCH ×2 (08:29→17:53)
[2021-12-09] MEDS: Finasteride 5 MG TABLET PO SCH (08:29)
[2021-12-09] MEDS: predniSONE 5 MG TABLET PO SCH (08:30)
[2021-12-09] MEDS: DilTIAZem CD (24hr) 180 MG CAP.ER.24H PO SCH (08:30)
[2021-12-09] MEDS: Gabapentin 300 MG CAPSULE PO SCH ×2 (08:30→20:51)
[2021-12-09] MEDS: Cyanocobalamin (B-12) 1,000 MCG TABLET PO SCH (08:30)
[2021-12-09 08:40] LABS: BUN/Creatinine Ratio 17 (6-26); Blood Urea Nitrogen 19 mg/dL (8-23); Carbon Dioxide 28 mEq/L (23-29); Chloride 103 mEq/L (98-107); Glucose 120 mg/dL (70-105); Osmolality,Calculated 291 (280-300); Potassium 3.7 mEq/L (3.5-5.1); Sodium 139 mEq/L (136-145); eGFR For African Americans > 60 (> 60); eGFR For Non-African Americans > 60 (> 60)
[2021-12-09 10:27] LABS: C-Reactive Protein 30 mg/L (Less than 10)
[2021-12-09] MEDS: Tiotropium 10 INH DOSE IH SCH (10:33)
[2021-12-09] MEDS: Budesonide/Formoterol 160/4.5 1 PUFF INH IH SCH ×2 (10:33→20:25)
[2021-12-09] MEDS ORDERED: 0.9 % Sodium Chloride Mini Bag 100 ML ONE ×2 (12:40→14:34)
[2021-12-09 14:47] LABS: vanA/B Vancomycin-Resist Genes Not Detected (Not Detect)
[2021-12-09 14:48] LABS: A.calcoaceticus-baumannii cplx Not Detected (Not Detect); Bacteroides fragilis by PCR Not Detected (Not Detect); Candida albicans by PCR Not Detected (Not Detect); Candida auris by PCR Not Detected (Not Detect); Candida glabrata by PCR Not Detected (Not Detect); Candida krusei by PCR Not Detected (Not Detect); Candida parapsilosis by PCR Not Detected (Not Detect); Candida tropicalis by PCR Not Detected (Not Detect); Crypto. neoformans/gattii PCR Not Detected (Not Detect); Enterobacter cloacae Cmplx PCR Not Detected (Not Detect); Enterobacterales by PCR Not Detected (Not Detect); Enterococcus faecalis by PCR DETECTED (Not Detect); Enterococcus faecium by PCR Not Detected (Not Detect); Escherichia coli by PCR Not Detected (Not Detect); Klebs. pneumoniae group by PCR Not Detected (Not Detect); Klebsiella aerogenes by PCR Not Detected (Not Detect); Klebsiella oxytoca by PCR Not Detected (Not Detect); Proteus by PCR Not Detected (Not Detect); Pseudomonas aeruginosa by PCR Not Detected (Not Detect); Salmonella species by PCR Not Detected (Not Detect); Serratia marcescens by PCR Not Detected (Not Detect); Staph epidermidis by PCR Not Detected (Not Detect); Staph lugdunensis by PCR Not Detected (Not Detect); Staphylococcus aureus by PCR Not Detected (Not Detect); Staphylococcus by PCR Not Detected (Not Detect); Stenotrophomonas maltophilia Not Detected (Not Detect); Streptococcus agalactiae(B)PCR Not Detected (Not Detect); Streptococcus by PCR Not Detected (Not Detect); Streptococcus pneumoniae PCR Not Detected (Not Detect); Streptococcus pyogenes (A) PCR Not Detected (Not Detect)
[2021-12-10] MEDS: Ampicillin 2,000 MG in 0.9 % Sodium Chloride Mini Bag 100 ML IVPB SCH ×7 (00:06→23:51)
[2021-12-10] MEDS: cefTRIAXone 2,000 MG in 0.9 % Sodium Chloride 20 ML IVP SCH ×2 (02:15→14:53)
[2021-12-10 03:17] LABS: Basophils # 0.1 K/mcL (0.0-0.2); Basophils % 0.6 %; Eosinophils # 0.1 K/mcL (0.0-0.6); Hematocrit 28.4 % (37.5-50.1); Hemoglobin 9.1 g/dL (12.9-16.9); Immature Granulocytes % 1.5 % (0-4); Lymphocytes # 0.7 K/mcL (0.6-4.6); Lymphocytes % 6.3 %; Mean Corpuscular Hemoglobin 29.4 pg (28.0-33.3); Mean Corpuscular Volume 91.9 fL (83.0-100.0); Mean Platelet Volume 9.6 fL (9.4-12.4); Monocytes # 0.9 K/mcL (0.0-1.3); Monocytes % 8.1 %; Neutrophils # 9.2 K/mcL (1.6-8.9); Platelet Count 252 K/mcL (140-400); Red Blood Count 3.09 M/mcL (4.19-5.50); Segmented Neutrophils % 82.5 %; White Blood Count 11.2 K/mcL (4.3-11.1)
[2021-12-10 03:22] LABS: INR 1.6
[2021-12-10 03:25] LABS: Activated Partial Thrombo Time 33.7 Seconds (26.0-36.0)
[2021-12-10 03:34] LABS: BUN/Creatinine Ratio 18 (6-26); Blood Urea Nitrogen 19 mg/dL (8-23); Carbon Dioxide 30 mEq/L (23-29); Chloride 102 mEq/L (98-107); Glucose 124 mg/dL (70-105); Osmolality,Calculated 290 (280-300); Potassium 3.6 mEq/L (3.5-5.1); Sodium 138 mEq/L (136-145); eGFR For African Americans > 60 (> 60); eGFR For Non-African Americans > 60 (> 60)
[2021-12-10] MEDS: Tiotropium 10 INH DOSE IH SCH (08:20)
[2021-12-10] MEDS: Budesonide/Formoterol 160/4.5 1 PUFF INH IH SCH ×2 (08:20→19:50)
[2021-12-10] MEDS ORDERED: 0.9 % Sodium Chloride Mini Bag 100 ML ONE (08:29)
[2021-12-10] MEDS: predniSONE 5 MG TABLET PO SCH (08:50)
[2021-12-10] MEDS: Apixaban 5 MG TABLET PO SCH ×2 (08:51→20:21)
[2021-12-10] MEDS: DilTIAZem CD (24hr) 180 MG CAP.ER.24H PO SCH (08:51)
[2021-12-10] MEDS: Gabapentin 300 MG CAPSULE PO SCH ×2 (08:51→20:21)
[2021-12-10] MEDS: Cyanocobalamin (B-12) 1,000 MCG TABLET PO SCH (08:51)
[2021-12-10] MEDS: Finasteride 5 MG TABLET PO SCH (08:51)
[2021-12-10] MEDS: Torsemide 20 MG TABLET PO SCH ×2 (08:51→16:49)
[2021-12-10] MEDS ORDERED: 0.9 % Sodium Chloride 500 ML IVC ONE (11:00)
[2021-12-10] MEDS ORDERED: Lidocaine Viscous Oral Soln 15 ML SOLUTION MM PRN (11:00)
[2021-12-10] MEDS: *HR* FentaNYL (PF) 100 MCG/2 ML VIAL IVP PRN ×3 (11:30→11:35)
[2021-12-10] MEDS: *HR* Midazolam HCl 5 MG/5 ML VIAL IVP PRN ×3 (11:30→11:35)
[2021-12-10] MEDS: Melatonin 3 MG TABLET PO PRN (22:46)
[2021-12-11] MEDS: Ampicillin 2,000 MG in 0.9 % Sodium Chloride Mini Bag 100 ML IVPB SCH ×5 (03:29→20:04)
[2021-12-11] MEDS: cefTRIAXone 2,000 MG in 0.9 % Sodium Chloride 20 ML IVP SCH ×2 (03:29→14:23)
[2021-12-11 05:28] LABS: Basophils # 0.1 K/mcL (0.0-0.2); Basophils % 0.9 %; Eosinophils # 0.2 K/mcL (0.0-0.6); Eosinophils % 1.8 %; Hematocrit 29.1 % (37.5-50.1); Hemoglobin 9.6 g/dL (12.9-16.9); Immature Granulocytes % 1.3 % (0-4); Lymphocytes # 0.8 K/mcL (0.6-4.6); Lymphocytes % 9.4 %; Mean Corpuscular Hemoglobin 30.1 pg (28.0-33.3); Mean Corpuscular Volume 91.2 fL (83.0-100.0); Mean Platelet Volume 9.7 fL (9.4-12.4); Monocytes # 0.8 K/mcL (0.0-1.3); Monocytes % 9.4 %; Neutrophils # 6.9 K/mcL (1.6-8.9); Platelet Count 278 K/mcL (140-400); Red Blood Count 3.19 M/mcL (4.19-5.50); Segmented Neutrophils % 77.2 %
[2021-12-11 05:51] LABS: BUN/Creatinine Ratio 16 (6-26); Blood Urea Nitrogen 19 mg/dL (8-23); Calcium 8.8 mg/dL (8.6-10.3); Carbon Dioxide 31 mEq/L (23-29); Chloride 102 mEq/L (98-107); Glucose 107 mg/dL (70-105); Osmolality,Calculated 289 (280-300); Potassium 3.6 mEq/L (3.5-5.1); Sodium 138 mEq/L (136-145); eGFR For African Americans > 60 (> 60); eGFR For Non-African Americans 59 (> 60)
[2021-12-11] MEDS: Gabapentin 300 MG CAPSULE PO SCH ×2 (08:12→20:03)
[2021-12-11] MEDS: DilTIAZem CD (24hr) 180 MG CAP.ER.24H PO SCH (08:12)
[2021-12-11] MEDS: Cyanocobalamin (B-12) 1,000 MCG TABLET PO SCH (08:12)
[2021-12-11] MEDS: Torsemide 20 MG TABLET PO SCH ×2 (08:12→16:37)
[2021-12-11] MEDS: Apixaban 5 MG TABLET PO SCH ×2 (08:12→20:03)
[2021-12-11] MEDS: predniSONE 5 MG TABLET PO SCH (08:12)
[2021-12-11] MEDS: Finasteride 5 MG TABLET PO SCH (08:13)
[2021-12-11] MEDS: Tiotropium 10 INH DOSE IH SCH (10:55)
[2021-12-11] MEDS: Budesonide/Formoterol 160/4.5 1 PUFF INH IH SCH ×2 (10:56→20:20)
[2021-12-11] MEDS: Melatonin 3 MG TABLET PO PRN (20:07)
[2021-12-12] MEDS: Ampicillin 2,000 MG in 0.9 % Sodium Chloride Mini Bag 100 ML IVPB SCH ×6 (00:24→20:10)
[2021-12-12 02:33] LABS: Basophils # 0.1 K/mcL (0.0-0.2); Basophils % 0.7 %; Eosinophils # 0.1 K/mcL (0.0-0.6); Eosinophils % 1.3 %; Hematocrit 27.5 % (37.5-50.1); Hemoglobin 8.9 g/dL (12.9-16.9); Immature Granulocytes % 1.6 % (0-4); Lymphocytes # 0.9 K/mcL (0.6-4.6); Mean Corpuscular HGB Conc 32.4 g/dL (31.6-35.5); Mean Corpuscular Hemoglobin 29.7 pg (28.0-33.3); Mean Corpuscular Volume 91.7 fL (83.0-100.0); Mean Platelet Volume 9.9 fL (9.4-12.4); Monocytes # 0.7 K/mcL (0.0-1.3); Monocytes % 8.3 %; Neutrophils # 6.9 K/mcL (1.6-8.9); Platelet Count 284 K/mcL (140-400); Segmented Neutrophils % 78.1 %; White Blood Count 8.9 K/mcL (4.3-11.1)
[2021-12-12 02:51] LABS: BUN/Creatinine Ratio 17 (6-26); Blood Urea Nitrogen 21 mg/dL (8-23); Calcium 8.5 mg/dL (8.6-10.3); Carbon Dioxide 30 mEq/L (23-29); Chloride 103 mEq/L (98-107); Glucose 140 mg/dL (70-105); Osmolality,Calculated 293 (280-300); Potassium 3.4 mEq/L (3.5-5.1); Sodium 139 mEq/L (136-145); eGFR For African Americans > 60 (> 60); eGFR For Non-African Americans 56 (> 60)
[2021-12-12] MEDS: cefTRIAXone 2,000 MG in 0.9 % Sodium Chloride 20 ML IVP SCH ×2 (04:23→13:46)
[2021-12-12] MEDS: predniSONE 5 MG TABLET PO SCH (07:56)
[2021-12-12] MEDS: Finasteride 5 MG TABLET PO SCH (07:56)
[2021-12-12] MEDS: Torsemide 20 MG TABLET PO SCH ×2 (07:56→16:10)
[2021-12-12] MEDS: Gabapentin 300 MG CAPSULE PO SCH ×2 (07:56→20:10)
[2021-12-12] MEDS: Apixaban 5 MG TABLET PO SCH ×2 (07:56→20:10)
[2021-12-12] MEDS: Cyanocobalamin (B-12) 1,000 MCG TABLET PO SCH (07:56)
[2021-12-12] MEDS: DilTIAZem CD (24hr) 180 MG CAP.ER.24H PO SCH (07:56)
[2021-12-12] MEDS: Tiotropium 10 INH DOSE IH SCH (08:13)
[2021-12-12] MEDS: Budesonide/Formoterol 160/4.5 1 PUFF INH IH SCH ×2 (08:13→20:39)
[2021-12-12] MEDS: Aspirin Enteric Coated 81 MG Tablet PO SCH (08:25)
[2021-12-12] MEDS: Acetaminophen 325 MG TABLET PO PRN ×2 (10:58→22:25)
[2021-12-12] MEDS: Melatonin 3 MG TABLET PO PRN (22:25)
[2021-12-13] MEDS: Ampicillin 2,000 MG in 0.9 % Sodium Chloride Mini Bag 100 ML IVPB SCH ×5 (00:18→15:33)
[2021-12-13] MEDS: cefTRIAXone 2,000 MG in 0.9 % Sodium Chloride 20 ML IVP SCH (02:37)
[2021-12-13] MEDS: Acetaminophen 325 MG TABLET PO PRN (04:37)
[2021-12-13 06:37] LABS: Basophils # 0.1 K/mcL (0.0-0.2); Basophils % 0.7 %; Eosinophils # 0.2 K/mcL (0.0-0.6); Eosinophils % 2.3 %; Hematocrit 26.7 % (37.5-50.1); Hemoglobin 8.7 g/dL (12.9-16.9); Lymphocytes % 11.7 %; Mean Corpuscular HGB Conc 32.6 g/dL (31.6-35.5); Mean Corpuscular Hemoglobin 30.1 pg (28.0-33.3); Mean Corpuscular Volume 92.4 fL (83.0-100.0); Mean Platelet Volume 9.7 fL (9.4-12.4); Monocytes # 0.9 K/mcL (0.0-1.3); Monocytes % 9.8 %; Neutrophils # 6.5 K/mcL (1.6-8.9); Platelet Count 286 K/mcL (140-400); Red Blood Count 2.89 M/mcL (4.19-5.50); Red Cell Distribution Width 15.1 % (11.5-14.5); Segmented Neutrophils % 74.5 %; White Blood Count 8.7 K/mcL (4.3-11.1)
[2021-12-13 06:58] LABS: BUN/Creatinine Ratio 16 (6-26); Blood Urea Nitrogen 22 mg/dL (8-23); Calcium 8.7 mg/dL (8.6-10.3); Carbon Dioxide 30 mEq/L (23-29); Chloride 104 mEq/L (98-107); Glucose 112 mg/dL (70-105); Osmolality,Calculated 296 (280-300); Potassium 3.7 mEq/L (3.5-5.1); Sodium 141 mEq/L (136-145); eGFR For African Americans > 60 (> 60); eGFR For Non-African Americans 50 (> 60)
[2021-12-13] MEDS: Budesonide/Formoterol 160/4.5 1 PUFF INH IH SCH (08:15)
[2021-12-13] MEDS: Tiotropium 10 INH DOSE IH SCH (08:15)
[2021-12-13] MEDS: DilTIAZem CD (24hr) 180 MG CAP.ER.24H PO SCH (08:39)
[2021-12-13] MEDS: Finasteride 5 MG TABLET PO SCH (08:40)
[2021-12-13] MEDS: Cyanocobalamin (B-12) 1,000 MCG TABLET PO SCH (08:40)
[2021-12-13] MEDS: Apixaban 5 MG TABLET PO SCH (08:40)
[2021-12-13] MEDS: predniSONE 5 MG TABLET PO SCH (08:41)
[2021-12-13] MEDS: Aspirin Enteric Coated 81 MG Tablet PO SCH (08:41)
[2021-12-13] MEDS: Gabapentin 300 MG CAPSULE PO SCH (08:41)
[2021-12-13 14:27] LABS: Adenovirus Not Detected (Not Detect); Bordetella Pertussis Not Detected (Not Detect); Chlamydophila pneumoniae Not Detected (Not Detect); Coronavirus 229E Not Detected (Not Detect); Coronavirus HKU1 Not Detected (Not Detect); Coronavirus NL63 Not Detected (Not Detect); Coronavirus OC43 Not Detected (Not Detect); Human Metapneumovirus Not Detected (Not Detect); Human Rhinovirus/Enterovirus Not Detected (Not Detect); Influenza A Subtype 2009 H1 Not Detected (Not Detect); Influenza B Not Detected (Not Detect); Mycoplasma pneumoniae Not Detected (Not Detect); Parainfluenza Virus 1 Not Detected (Not Detect); Parainfluenza Virus 2 Not Detected (Not Detect); Parainfluenza Virus 3 Not Detected (Not Detect); Parainfluenza Virus 4 Not Detected (Not Detect); Respiratory Syncytial Virus Not Detected (Not Detect); SARS-CoV-2 Not Detected (Not Detect)
[2021-12-13] MEDS: Torsemide 20 MG TABLET PO SCH (17:01)
[2021-12-13 17:08] VITALS: BP 136/73; PULSE 67; TEMP 98.8; O2SAT 91
== END 2021-12-13 18:57 | disposition other institution (70) | DRG 871 ==
LOC: 3ANU → SUATTDRO 18:19
PROVIDERS: ADMIT Hospitalist; ATTEND Internal Medicine

== ENCOUNTER 2021-12-21 12:03 | Inpatient (IN) ==
[2021-12-21] MEDS ORDERED: Naloxone 0.4 MG/ML INJ IVP PRN (16:12)
[2021-12-21] MEDS ORDERED: Silver Nitrate Applicator 1 STICK..EA. TP ONE (17:46)
[2021-12-21] MEDS: Ampicillin 2,000 MG in 0.9 % Sodium Chloride Mini Bag 100 ML IVPB SCH (18:48)
[2021-12-21] MEDS: Ipratropium/Albuterol Neb 3 ML IH SCH ×2 (19:46→23:48)
[2021-12-21] MEDS: Apixaban 2.5 MG TABLET PO SCH (20:16)
[2021-12-21 22:40] LABS: Calcium 8.2 mg/dL (8.6-10.3); Potassium 4.7 mEq/L (3.5-5.1)
[2021-12-22] MEDS: *HR* HYDROcodone/Acet 5/325 mg TABLET PO PRN ×3 (00:33→18:26)
[2021-12-22 00:50] LABS: Hematocrit 21.6 % (37.5-50.1); Hemoglobin 6.9 g/dL (12.9-16.9)
[2021-12-22] MEDS: Ampicillin 2,000 MG in 0.9 % Sodium Chloride Mini Bag 100 ML IVPB SCH (01:41)
[2021-12-22 03:30] LABS: Basophils # 0.1 K/mcL (0.0-0.2); Basophils % 0.6 %; Eosinophils # 0.2 K/mcL (0.0-0.6); Eosinophils % 1.9 %; Hematocrit 20.5 % (37.5-50.1); Hemoglobin 6.6 g/dL (12.9-16.9); Immature Granulocytes % 1.8 % (0-4); Lymphocytes # 0.8 K/mcL (0.6-4.6); Mean Corpuscular HGB Conc 32.2 g/dL (31.6-35.5); Mean Corpuscular Volume 93.2 fL (83.0-100.0); Mean Platelet Volume 9.7 fL (9.4-12.4); Monocytes % 12.3 %; Neutrophils # 5.7 K/mcL (1.6-8.9); Platelet Count 237 K/mcL (140-400); Red Cell Distribution Width 15.3 % (11.5-14.5); Segmented Neutrophils % 73.4 %; White Blood Count 7.8 K/mcL (4.3-11.1)
[2021-12-22 03:54] LABS: Calcium 8.1 mg/dL (8.6-10.3); Magnesium 2.2 mg/dL (1.6-2.6); Phosphorous 3.6 mg/dL (2.7-4.5); Potassium 4.3 mEq/L (3.5-5.1)
[2021-12-22] MEDS: Ipratropium/Albuterol Neb 3 ML IH SCH ×6 (03:56→23:38)
[2021-12-22] MEDS ORDERED: 0.9 % Sodium Chloride 250 ML ONE ×2 (06:01→12:00)
[2021-12-22] MEDS: Apixaban 2.5 MG TABLET PO SCH ×2 (09:09→09:34)
[2021-12-22] MEDS: DilTIAZem CD (24hr) 180 MG CAP.ER.24H PO SCH (09:09)
[2021-12-22 11:30] LABS: Hematocrit 22.9 % (37.5-50.1); Hemoglobin 7.2 g/dL (12.9-16.9)
[2021-12-22 18:49] LABS: Hematocrit 22.6 % (37.5-50.1); Hemoglobin 7.3 g/dL (12.9-16.9)
[2021-12-22] MEDS: traZODone 50 MG TABLET PO SCH (20:26)
[2021-12-23 01:17] LABS: Basophils # 0.1 K/mcL (0.0-0.2); Basophils % 0.9 %; Eosinophils # 0.2 K/mcL (0.0-0.6); Eosinophils % 2.1 %; Hematocrit 21.2 % (37.5-50.1); Hemoglobin 6.8 g/dL (12.9-16.9); Immature Granulocytes % 3.4 % (0-4); Lymphocytes # 1.2 K/mcL (0.6-4.6); Lymphocytes % 11.9 %; Mean Corpuscular HGB Conc 32.1 g/dL (31.6-35.5); Mean Corpuscular Hemoglobin 29.4 pg (28.0-33.3); Mean Corpuscular Volume 91.8 fL (83.0-100.0); Mean Platelet Volume 9.7 fL (9.4-12.4); Monocytes # 1.2 K/mcL (0.0-1.3); Monocytes % 11.6 %; Neutrophils # 7.3 K/mcL (1.6-8.9); Platelet Count 210 K/mcL (140-400); Red Blood Count 2.31 M/mcL (4.19-5.50); Segmented Neutrophils % 70.1 %; White Blood Count 10.4 K/mcL (4.3-11.1)
[2021-12-23 01:33] LABS: Calcium 7.8 mg/dL (8.6-10.3); Potassium 4.9 mEq/L (3.5-5.1)
[2021-12-23] MEDS: Ipratropium/Albuterol Neb 3 ML IH SCH ×6 (03:47→23:35)
[2021-12-23] MEDS ORDERED: 0.9 % Sodium Chloride 250 ML ONE (05:25)
[2021-12-23] MEDS: Tiotropium 10 INH DOSE IH SCH (07:38)
[2021-12-23] MEDS: Ampicillin 2,000 MG in 0.9 % Sodium Chloride Mini Bag 100 ML IVPB SCH (07:57)
[2021-12-23] MEDS: DilTIAZem CD (24hr) 180 MG CAP.ER.24H PO SCH (08:01)
[2021-12-23] MEDS: Aspirin Enteric Coated 81 MG Tablet PO SCH (08:01)
[2021-12-23] MEDS: Gabapentin 300 MG CAPSULE PO SCH (08:02)
[2021-12-23] MEDS: predniSONE 5 MG TABLET PO SCH (08:02)
[2021-12-23] MEDS: Finasteride 5 MG TABLET PO SCH (08:02)
[2021-12-23] MEDS: *HR* HYDROcodone/Acet 5/325 mg TABLET PO PRN ×2 (08:03→16:52)
[2021-12-23 11:46] LABS: Hematocrit 22.7 % (37.5-50.1); Hemoglobin 7.4 g/dL (12.9-16.9)
[2021-12-23] MEDS: DAPTOmycin 750 MG in 0.9 % Sodium Chloride 100 ML IVPB SCH (14:21)
[2021-12-23] MEDS: Albumin 25% 25gram/100mL 25 GM/100 ML IV.SOLN IVPB SCH (16:52)
[2021-12-23] MEDS: traZODone 50 MG TABLET PO SCH (20:38)
[2021-12-24] MEDS: Albumin 25% 25gram/100mL 25 GM/100 ML IV.SOLN IVPB SCH ×4 (00:55→23:18)
[2021-12-24] MEDS: Ipratropium/Albuterol Neb 3 ML IH SCH ×3 (03:51→12:36)
[2021-12-24 04:52] LABS: Bilirubin,Urine Negative (Negative); Blood,Urine Large (Negative); Clarity,Urine Ex.Turbid (Clear); Color,Urine Light-Orange (Yellow); Glucose,Urine (UA) Normal (Normal); Ketones,Urine Trace mg/dL (Negative); Leukocyte Esterase,Urine Small (Negative); Nitrite,Urine Negative (Negative); Protein,Urine 100 mg/dL (Neg-Trace); RBC,Urine TNTC per hpf (0-3); Specific Gravity,Urine 1.019 (1.010-1.025); Squamous Epithelial Cell,Urine Few per hpf (None-Few); Urobilinogen,Urine Normal (Normal); WBC,Urine TNTC per hpf (0-3)
[2021-12-24 05:25] LABS: Basophils % 0.3 %; Eosinophils % 0.7 %
[2021-12-24 05:26] LABS: Eosinophils # 0.1 K/mcL (0.0-0.6); Hematocrit 16.6 % (37.5-50.1); Immature Granulocytes % 3.5 % (0-4); Lymphocytes # 0.8 K/mcL (0.6-4.6); Lymphocytes % 7.3 %; Mean Corpuscular HGB Conc 32.5 g/dL (31.6-35.5); Mean Corpuscular Hemoglobin 30.3 pg (28.0-33.3); Mean Corpuscular Volume 93.3 fL (83.0-100.0); Mean Platelet Volume 9.9 fL (9.4-12.4); Monocytes # 1.4 K/mcL (0.0-1.3); Monocytes % 11.7 %; Neutrophils # 8.8 K/mcL (1.6-8.9); Nucleated Red Blood Cells 0.3 /100 WBC (0); Platelet Count 169 K/mcL (140-400); Red Blood Count 1.78 M/mcL (4.19-5.50); Red Cell Distribution Width 15.8 % (11.5-14.5); Segmented Neutrophils % 76.5 %; White Blood Count 11.5 K/mcL (4.3-11.1)
[2021-12-24 05:35] LABS: Hemoglobin 5.4 g/dL (12.9-16.9)
[2021-12-24 05:52] LABS: Calcium 7.8 mg/dL (8.6-10.3); Potassium 4.6 mEq/L (3.5-5.1)
[2021-12-24] MEDS ORDERED: 0.9 % Sodium Chloride 250 ML ONE ×3 (05:52→20:29)
[2021-12-24] MEDS: Aspirin Enteric Coated 81 MG Tablet PO SCH (08:03)
[2021-12-24] MEDS: DilTIAZem CD (24hr) 180 MG CAP.ER.24H PO SCH (08:04)
[2021-12-24] MEDS: Gabapentin 300 MG CAPSULE PO SCH (08:04)
[2021-12-24] MEDS: Finasteride 5 MG TABLET PO SCH (08:04)
[2021-12-24] MEDS: predniSONE 5 MG TABLET PO SCH (08:04)
[2021-12-24] MEDS: Tiotropium 10 INH DOSE IH SCH (08:11)
[2021-12-24] MEDS ORDERED: Folic Acid 1 MG TABLET PO SCH (11:15)
[2021-12-24] MEDS: *HR* HYDROcodone/Acet 5/325 mg TABLET PO PRN (11:34)
[2021-12-24] MEDS: Albuterol 2.5 MG/3 ML NEBULIZER IH SCH ×3 (15:41→19:56)
[2021-12-24] MEDS: Ondansetron 4 MG/2 ML VIAL IVP PRN (17:02)
[2021-12-24 18:39] LABS: Basophils # 0.1 K/mcL (0.0-0.2); Basophils % 0.4 %; Eosinophils # 0.1 K/mcL (0.0-0.6); Eosinophils % 0.7 %; Hematocrit 22.3 % (37.5-50.1); Immature Reticulocyte % 44.7 % (11.0-38.0); Lymphocytes # 0.6 K/mcL (0.6-4.6); Lymphocytes % 5.3 %; Mean Corpuscular HGB Conc 32.3 g/dL (31.6-35.5); Mean Corpuscular Hemoglobin 30.3 pg (28.0-33.3); Mean Corpuscular Volume 93.7 fL (83.0-100.0); Mean Platelet Volume 9.4 fL (9.4-12.4); Monocytes # 1.1 K/mcL (0.0-1.3); Monocytes % 9.5 %; Neutrophils # 9.5 K/mcL (1.6-8.9); Nucleated Red Blood Cells 0.9 /100 WBC (0); Platelet Count 152 K/mcL (140-400); Red Blood Count 2.38 M/mcL (4.19-5.50); Red Cell Distribution Width 15.7 % (11.5-14.5); Retculocyte # 0.08 M/mcL (0.05-0.10); Reticulocyte % 3.5 % (1.6-2.8); Segmented Neutrophils % 81.1 %; White Blood Count 11.7 K/mcL (4.3-11.1)
[2021-12-24 18:41] LABS: Hemoglobin 7.2 g/dL (12.9-16.9)
[2021-12-24 18:49] LABS: INR 1.4; Prothrombin Time 15.8 Seconds (9.4-12.1)
[2021-12-24 18:54] LABS: Uric Acid 8.4 mg/dL (2.3-7.6)
[2021-12-24] MEDS: traZODone 50 MG TABLET PO SCH (20:32)
[2021-12-24 21:36] LABS: Creatinine,Urine 98 mg/dL; Protein/Creatinine Ratio,Urine 1.36 mg/mg (0.00-0.20); Sodium, Urine < 10.0 mEq/L
[2021-12-24] MEDS ORDERED: Bismuth Subsalicylate 120 ML ORAL SUSPENSION PO ONE (22:15)
[2021-12-25 01:35] LABS: Basophils % 0.3 %; Eosinophils # 0.1 K/mcL (0.0-0.6); Eosinophils % 0.9 %; Hematocrit 22.5 % (37.5-50.1); Hemoglobin 7.4 g/dL (12.9-16.9); Immature Granulocytes % 2.2 % (0-4); Lymphocytes # 0.6 K/mcL (0.6-4.6); Lymphocytes % 6.1 %; Mean Corpuscular HGB Conc 32.9 g/dL (31.6-35.5); Mean Corpuscular Hemoglobin 30.8 pg (28.0-33.3); Mean Corpuscular Volume 93.8 fL (83.0-100.0); Mean Platelet Volume 9.5 fL (9.4-12.4); Monocytes # 0.7 K/mcL (0.0-1.3); Monocytes % 7.2 %; Nucleated Red Blood Cells 0.8 /100 WBC (0); Platelet Count 139 K/mcL (140-400); Red Cell Distribution Width 15.8 % (11.5-14.5); Segmented Neutrophils % 83.3 %; White Blood Count 9.6 K/mcL (4.3-11.1)
[2021-12-25 01:46] LABS: Potassium 4.4 mEq/L (3.5-5.1)
[2021-12-25 01:47] LABS: Albumin 3.5 g/dL (3.5-5.7); Albumin/Globulin Ratio 2.2 (1.1-2.2); Bilirubin,Direct 0.2 mg/dL (0.0-0.2); Bilirubin,Indirect 0.5 mg/dL (0.0-1.0); Bilirubin,Total 0.7 mg/dL (0.3-1.0); Globulin 1.6 g/dL (2.4-3.5); Total Protein 5.1 g/dL (6.4-8.9)
[2021-12-25] MEDS: Albuterol 2.5 MG/3 ML NEBULIZER IH SCH ×4 (03:47→21:09)
[2021-12-25] MEDS: Finasteride 5 MG TABLET PO SCH (07:26)
[2021-12-25] MEDS: DilTIAZem CD (24hr) 180 MG CAP.ER.24H PO SCH (07:26)
[2021-12-25] MEDS: predniSONE 5 MG TABLET PO SCH (07:26)
[2021-12-25] MEDS: Albumin 25% 25gram/100mL 25 GM/100 ML IV.SOLN IVPB SCH ×2 (07:27→10:53)
[2021-12-25] MEDS: Tiotropium 10 INH DOSE IH SCH (07:38)
[2021-12-25] MEDS: Lactulose Oral Soln 20 GM/30 ML UDC PO SCH ×2 (08:32→19:52)
[2021-12-25] MEDS: Folic Acid 1 MG TABLET PO SCH (08:32)
[2021-12-25] MEDS: Ondansetron 4 MG/2 ML VIAL IVP PRN (12:11)
[2021-12-25] MEDS: DAPTOmycin 750 MG in 0.9 % Sodium Chloride 100 ML IVPB SCH (12:12)
[2021-12-25] MEDS: 0.9 % Sodium Chloride 1,000 ML IVC SCH (12:12)
[2021-12-25] MEDS: traZODone 50 MG TABLET PO SCH (19:52)
[2021-12-25] MEDS: *HR* HYDROcodone/Acet 5/325 mg TABLET PO PRN (19:55)
[2021-12-26 04:07] LABS: Hematocrit 24.1 % (37.5-50.1); Hemoglobin 7.9 g/dL (12.9-16.9); Mean Corpuscular HGB Conc 32.8 g/dL (31.6-35.5); Mean Corpuscular Hemoglobin 31.3 pg (28.0-33.3); Mean Corpuscular Volume 95.6 fL (83.0-100.0); Mean Platelet Volume 9.8 fL (9.4-12.4); Platelet Count 156 K/mcL (140-400); Red Blood Count 2.52 M/mcL (4.19-5.50); Red Cell Distribution Width 15.6 % (11.5-14.5); White Blood Count 10.3 K/mcL (4.3-11.1)
[2021-12-26 04:26] LABS: Calcium 8.2 mg/dL (8.6-10.3); Magnesium 2.3 mg/dL (1.6-2.6); Phosphorous 5.3 mg/dL (2.7-4.5); Potassium 4.7 mEq/L (3.5-5.1)
[2021-12-26] MEDS: Albuterol 2.5 MG/3 ML NEBULIZER IH SCH ×4 (04:26→20:12)
[2021-12-26] MEDS: Lactulose Oral Soln 20 GM/30 ML UDC PO SCH ×3 (07:36→23:56)
[2021-12-26] MEDS: Tiotropium 10 INH DOSE IH SCH (07:36)
[2021-12-26] MEDS: DilTIAZem CD (24hr) 180 MG CAP.ER.24H PO SCH (07:37)
[2021-12-26] MEDS: predniSONE 5 MG TABLET PO SCH (07:37)
[2021-12-26] MEDS: Folic Acid 1 MG TABLET PO SCH (07:37)
[2021-12-26] MEDS: Finasteride 5 MG TABLET PO SCH (07:37)
[2021-12-26] MEDS: 0.9 % Sodium Chloride 1,000 ML IVC SCH (10:49)
[2021-12-26] MEDS: traZODone 50 MG TABLET PO SCH (21:21)
[2021-12-26] MEDS: *HR* HYDROcodone/Acet 5/325 mg TABLET PO PRN (21:22)
[2021-12-27] MEDS: Albuterol 2.5 MG/3 ML NEBULIZER IH SCH ×4 (04:03→21:11)
[2021-12-27 05:32] LABS: Potassium 4.3 mEq/L (3.5-5.1)
[2021-12-27] MEDS: predniSONE 5 MG TABLET PO SCH (07:39)
[2021-12-27] MEDS: DilTIAZem CD (24hr) 180 MG CAP.ER.24H PO SCH (07:39)
[2021-12-27] MEDS: Finasteride 5 MG TABLET PO SCH (07:39)
[2021-12-27] MEDS: Folic Acid 1 MG TABLET PO SCH (07:39)
[2021-12-27] MEDS: Lactulose Oral Soln 20 GM/30 ML UDC PO SCH ×3 (07:39→19:50)
[2021-12-27] MEDS: Tiotropium 10 INH DOSE IH SCH (07:44)
[2021-12-27] MEDS: DAPTOmycin 750 MG in 0.9 % Sodium Chloride 100 ML IVPB SCH (11:54)
[2021-12-27] MEDS: Albumin 25% 12.5gm/50mL 12.5 GM/50 ML IV.SOLN IVPB SCH ×3 (11:54→19:51)
[2021-12-27] MEDS: traZODone 50 MG TABLET PO SCH (19:56)
[2021-12-28] MEDS: Albumin 25% 12.5gm/50mL 12.5 GM/50 ML IV.SOLN IVPB SCH ×3 (03:12→20:50)
[2021-12-28] MEDS: Albuterol 2.5 MG/3 ML NEBULIZER IH SCH ×4 (03:34→22:03)
[2021-12-28 03:47] LABS: Hematocrit 23.5 % (37.5-50.1); Hemoglobin 7.4 g/dL (12.9-16.9); Mean Corpuscular HGB Conc 31.5 g/dL (31.6-35.5); Mean Corpuscular Hemoglobin 30.6 pg (28.0-33.3); Mean Corpuscular Volume 97.1 fL (83.0-100.0); Mean Platelet Volume 9.8 fL (9.4-12.4); Platelet Count 181 K/mcL (140-400); Red Blood Count 2.42 M/mcL (4.19-5.50); Red Cell Distribution Width 15.7 % (11.5-14.5); White Blood Count 10.2 K/mcL (4.3-11.1)
[2021-12-28 04:00] LABS: Calcium 8.2 mg/dL (8.6-10.3); Potassium 4.2 mEq/L (3.5-5.1)
[2021-12-28] MEDS: Finasteride 5 MG TABLET PO SCH (09:20)
[2021-12-28] MEDS: predniSONE 5 MG TABLET PO SCH (09:20)
[2021-12-28] MEDS: Folic Acid 1 MG TABLET PO SCH (09:20)
[2021-12-28] MEDS: DilTIAZem CD (24hr) 180 MG CAP.ER.24H PO SCH (09:20)
[2021-12-28] MEDS: Lactulose Oral Soln 20 GM/30 ML UDC PO SCH ×2 (09:21→20:48)
[2021-12-28] MEDS: Tiotropium 10 INH DOSE IH SCH (09:44)
[2021-12-28] MEDS: traZODone 50 MG TABLET PO SCH (20:48)
[2021-12-28] MEDS: Apixaban 2.5 MG TABLET PO SCH (20:48)
[2021-12-29 03:37] LABS: Calcium 8.5 mg/dL (8.6-10.3); Potassium 4.2 mEq/L (3.5-5.1)
[2021-12-29] MEDS: Albuterol 2.5 MG/3 ML NEBULIZER IH SCH ×4 (03:52→20:21)
[2021-12-29] MEDS: Albumin 25% 12.5gm/50mL 12.5 GM/50 ML IV.SOLN IVPB SCH ×3 (04:18→19:49)
[2021-12-29] MEDS: Finasteride 5 MG TABLET PO SCH (09:40)
[2021-12-29] MEDS: Apixaban 2.5 MG TABLET PO SCH ×2 (09:40→19:49)
[2021-12-29] MEDS: Folic Acid 1 MG TABLET PO SCH (09:40)
[2021-12-29] MEDS: Lactulose Oral Soln 20 GM/30 ML UDC PO SCH ×2 (09:40→19:50)
[2021-12-29] MEDS: predniSONE 5 MG TABLET PO SCH (09:40)
[2021-12-29] MEDS: DilTIAZem CD (24hr) 180 MG CAP.ER.24H PO SCH (09:40)
[2021-12-29] MEDS: Tiotropium 10 INH DOSE IH SCH (09:50)
[2021-12-29] MEDS: DAPTOmycin 750 MG in 0.9 % Sodium Chloride 100 ML IVPB SCH (14:04)
[2021-12-29] MEDS: traZODone 50 MG TABLET PO SCH (19:49)
[2021-12-30] MEDS: Albumin 25% 12.5gm/50mL 12.5 GM/50 ML IV.SOLN IVPB SCH (04:00)
[2021-12-30] MEDS: Albuterol 2.5 MG/3 ML NEBULIZER IH SCH ×4 (04:14→20:04)
[2021-12-30 04:20] LABS: Hemoglobin 7.2 g/dL (12.9-16.9); Mean Corpuscular HGB Conc 31.3 g/dL (31.6-35.5); Mean Corpuscular Hemoglobin 30.1 pg (28.0-33.3); Mean Corpuscular Volume 96.2 fL (83.0-100.0); Mean Platelet Volume 9.6 fL (9.4-12.4); Platelet Count 213 K/mcL (140-400); Red Blood Count 2.39 M/mcL (4.19-5.50); Red Cell Distribution Width 15.7 % (11.5-14.5); White Blood Count 11.4 K/mcL (4.3-11.1)
[2021-12-30 04:34] LABS: Calcium 8.5 mg/dL (8.6-10.3); Potassium 4.4 mEq/L (3.5-5.1)
[2021-12-30] MEDS: Apixaban 2.5 MG TABLET PO SCH ×2 (09:19→21:17)
[2021-12-30] MEDS: Finasteride 5 MG TABLET PO SCH (09:19)
[2021-12-30] MEDS: predniSONE 5 MG TABLET PO SCH (09:19)
[2021-12-30] MEDS: DilTIAZem CD (24hr) 180 MG CAP.ER.24H PO SCH (09:19)
[2021-12-30] MEDS: Lactulose Oral Soln 20 GM/30 ML UDC PO SCH ×2 (09:19→21:16)
[2021-12-30] MEDS: Folic Acid 1 MG TABLET PO SCH (09:19)
[2021-12-30] MEDS: Tiotropium 10 INH DOSE IH SCH (09:41)
[2021-12-30] MEDS ORDERED: Furosemide 20 MG/2 ML VIAL IVP SCH (10:00)
[2021-12-30] MEDS: Furosemide 20 MG/2 ML VIAL IVP SCH (17:29)
[2021-12-30] MEDS: traZODone 50 MG TABLET PO SCH (21:16)
[2021-12-31 04:07] LABS: Basophils # 0.1 K/mcL (0.0-0.2); Basophils % 0.4 %; Eosinophils # 0.2 K/mcL (0.0-0.6); Eosinophils % 1.4 %; Immature Granulocytes % 1.1 % (0-4); Lymphocytes % 7.5 %; Mean Corpuscular Hemoglobin 31.4 pg (28.0-33.3); Mean Platelet Volume 9.5 fL (9.4-12.4); Monocytes # 1.4 K/mcL (0.0-1.3); Monocytes % 10.2 %; Neutrophils # 10.9 K/mcL (1.6-8.9); Platelet Count 266 K/mcL (140-400); Red Blood Count 2.55 M/mcL (4.19-5.50); Red Cell Distribution Width 15.7 % (11.5-14.5); Segmented Neutrophils % 79.4 %; White Blood Count 13.8 K/mcL (4.3-11.1)
[2021-12-31] MEDS: Albuterol 2.5 MG/3 ML NEBULIZER IH SCH ×4 (04:15→19:51)
[2021-12-31 04:28] LABS: Calcium 8.7 mg/dL (8.6-10.3); Magnesium 1.9 mg/dL (1.6-2.6); Phosphorous 3.4 mg/dL (2.7-4.5); Potassium 4.5 mEq/L (3.5-5.1)
[2021-12-31] MEDS: Tiotropium 10 INH DOSE IH SCH (07:53)
[2021-12-31] MEDS ORDERED: levoFLOXacin 750 MG TABLET PO ONE (09:33)
[2021-12-31] MEDS: Lactulose Oral Soln 20 GM/30 ML UDC PO SCH ×2 (09:55→21:15)
[2021-12-31] MEDS: Finasteride 5 MG TABLET PO SCH (09:55)
[2021-12-31] MEDS: Apixaban 2.5 MG TABLET PO SCH ×2 (09:55→21:15)
[2021-12-31] MEDS: predniSONE 5 MG TABLET PO SCH (09:55)
[2021-12-31] MEDS: Folic Acid 1 MG TABLET PO SCH (09:55)
[2021-12-31] MEDS: DilTIAZem CD (24hr) 180 MG CAP.ER.24H PO SCH (09:55)
[2021-12-31] MEDS: Furosemide 20 MG/2 ML VIAL IVP SCH ×2 (09:58→16:41)
[2021-12-31] MEDS ORDERED: polyethylene glycoL 3350 17 GM POWD.PACK PO PRN (10:13)
[2021-12-31] MEDS: Albumin 25% 25gram/100mL 25 GM/100 ML IV.SOLN IVPB SCH ×2 (12:33→21:14)
[2021-12-31] MEDS: DAPTOmycin 750 MG in 0.9 % Sodium Chloride 100 ML IVPB SCH (12:34)
[2021-12-31] MEDS: Meropenem 500 MG in 0.9 % Sodium Chloride Mini Bag 100 ML IVPB SCH (16:41)
[2021-12-31] MEDS: traZODone 50 MG TABLET PO SCH (21:15)
[2022-01-01] MEDS: Albuterol 2.5 MG/3 ML NEBULIZER IH SCH ×4 (03:09→20:36)
[2022-01-01] MEDS: Albumin 25% 25gram/100mL 25 GM/100 ML IV.SOLN IVPB SCH ×3 (04:18→19:48)
[2022-01-01 04:57] LABS: Basophils # 0.1 K/mcL (0.0-0.2); Basophils % 0.7 %; Eosinophils # 0.2 K/mcL (0.0-0.6); Eosinophils % 2.2 %; Hematocrit 22.9 % (37.5-50.1); Hemoglobin 7.1 g/dL (12.9-16.9); Immature Granulocytes % 0.8 % (0-4); Lymphocytes # 0.5 K/mcL (0.6-4.6); Lymphocytes % 5.1 %; Mean Corpuscular Hemoglobin 29.7 pg (28.0-33.3); Mean Corpuscular Volume 95.8 fL (83.0-100.0); Mean Platelet Volume 9.4 fL (9.4-12.4); Monocytes # 0.9 K/mcL (0.0-1.3); Monocytes % 8.9 %; Neutrophils # 8.4 K/mcL (1.6-8.9); Platelet Count 246 K/mcL (140-400); Red Blood Count 2.39 M/mcL (4.19-5.50); Red Cell Distribution Width 15.5 % (11.5-14.5); Segmented Neutrophils % 82.3 %; White Blood Count 10.2 K/mcL (4.3-11.1)
[2022-01-01 05:12] LABS: Calcium 8.6 mg/dL (8.6-10.3); Magnesium 1.7 mg/dL (1.6-2.6); Phosphorous 3.3 mg/dL (2.7-4.5); Potassium 3.9 mEq/L (3.5-5.1)
[2022-01-01] MEDS: Meropenem 500 MG in 0.9 % Sodium Chloride Mini Bag 100 ML IVPB SCH ×2 (06:14→17:14)
[2022-01-01] MEDS: Tiotropium 10 INH DOSE IH SCH (08:11)
[2022-01-01] MEDS: Furosemide 20 MG/2 ML VIAL IVP SCH ×2 (09:12→17:14)
[2022-01-01] MEDS: Folic Acid 1 MG TABLET PO SCH (09:12)
[2022-01-01] MEDS: predniSONE 5 MG TABLET PO SCH (09:12)
[2022-01-01] MEDS: Finasteride 5 MG TABLET PO SCH (09:12)
[2022-01-01] MEDS: Apixaban 2.5 MG TABLET PO SCH ×2 (09:12→19:48)
[2022-01-01] MEDS: DilTIAZem CD (24hr) 180 MG CAP.ER.24H PO SCH (09:12)
[2022-01-01] MEDS: Lactulose Oral Soln 20 GM/30 ML UDC PO SCH ×2 (09:12→19:47)
[2022-01-01] MEDS: traZODone 50 MG TABLET PO SCH (19:48)
[2022-01-02] MEDS: Albumin 25% 25gram/100mL 25 GM/100 ML IV.SOLN IVPB SCH ×3 (03:16→20:00)
[2022-01-02] MEDS: Albuterol 2.5 MG/3 ML NEBULIZER IH SCH ×2 (04:08→08:18)
[2022-01-02] MEDS: Meropenem 500 MG in 0.9 % Sodium Chloride Mini Bag 100 ML IVPB SCH ×2 (05:30→18:05)
[2022-01-02 05:53] LABS: Basophils # 0.1 K/mcL (0.0-0.2); Basophils % 0.5 %; Eosinophils # 0.3 K/mcL (0.0-0.6); Eosinophils % 2.6 %; Hematocrit 22.7 % (37.5-50.1); Hemoglobin 7.1 g/dL (12.9-16.9); Immature Granulocytes % 0.6 % (0-4); Lymphocytes # 0.4 K/mcL (0.6-4.6); Lymphocytes % 4.1 %; Mean Corpuscular HGB Conc 31.3 g/dL (31.6-35.5); Mean Corpuscular Hemoglobin 30.1 pg (28.0-33.3); Mean Corpuscular Volume 96.2 fL (83.0-100.0); Mean Platelet Volume 9.3 fL (9.4-12.4); Monocytes # 0.8 K/mcL (0.0-1.3); Monocytes % 7.9 %; Neutrophils # 8.4 K/mcL (1.6-8.9); Platelet Count 233 K/mcL (140-400); Red Blood Count 2.36 M/mcL (4.19-5.50); Red Cell Distribution Width 15.6 % (11.5-14.5); Segmented Neutrophils % 84.3 %; White Blood Count 9.9 K/mcL (4.3-11.1)
[2022-01-02 06:38] LABS: Calcium 9.3 mg/dL (8.6-10.3); Magnesium 1.7 mg/dL (1.6-2.6); Phosphorous 3.3 mg/dL (2.7-4.5); Potassium 3.7 mEq/L (3.5-5.1)
[2022-01-02] MEDS: Furosemide 20 MG/2 ML VIAL IVP SCH ×2 (08:07→18:00)
[2022-01-02] MEDS: Ondansetron 4 MG/2 ML VIAL IVP PRN (08:07)
[2022-01-02] MEDS: Folic Acid 1 MG TABLET PO SCH (08:08)
[2022-01-02] MEDS: Lactulose Oral Soln 20 GM/30 ML UDC PO SCH ×2 (08:08→19:58)
[2022-01-02] MEDS: predniSONE 5 MG TABLET PO SCH (08:08)
[2022-01-02] MEDS: Apixaban 2.5 MG TABLET PO SCH ×2 (08:08→19:58)
[2022-01-02] MEDS: Finasteride 5 MG TABLET PO SCH (08:08)
[2022-01-02] MEDS: DilTIAZem CD (24hr) 180 MG CAP.ER.24H PO SCH (08:08)
[2022-01-02] MEDS: Tiotropium 10 INH DOSE IH SCH (08:18)
[2022-01-02] MEDS: Famotidine 20 MG TABLET PO SCH ×2 (12:36→19:58)
[2022-01-02] MEDS: Ipratropium/Albuterol Neb 3 ML IH SCH ×3 (12:50→21:07)
[2022-01-02] MEDS: DAPTOmycin 750 MG in 0.9 % Sodium Chloride 100 ML IVPB SCH (13:34)
[2022-01-02] MEDS: traZODone 50 MG TABLET PO SCH (19:59)
[2022-01-03] MEDS: Ipratropium/Albuterol Neb 3 ML IH SCH ×7 (00:10→23:18)
[2022-01-03] MEDS: Meropenem 500 MG in 0.9 % Sodium Chloride Mini Bag 100 ML IVPB SCH (05:28)
[2022-01-03 05:51] LABS: Basophils # 0.1 K/mcL (0.0-0.2); Basophils % 0.4 %; Eosinophils # 0.2 K/mcL (0.0-0.6); Eosinophils % 1.1 %; Hematocrit 23.9 % (37.5-50.1); Hemoglobin 7.4 g/dL (12.9-16.9); Immature Granulocytes % 0.7 % (0-4); Lymphocytes # 0.3 K/mcL (0.6-4.6); Lymphocytes % 2.5 %; Mean Corpuscular Volume 96.8 fL (83.0-100.0); Mean Platelet Volume 9.2 fL (9.4-12.4); Monocytes % 7.5 %; Neutrophils # 11.8 K/mcL (1.6-8.9); Platelet Count 257 K/mcL (140-400); Red Blood Count 2.47 M/mcL (4.19-5.50); Red Cell Distribution Width 15.4 % (11.5-14.5); Segmented Neutrophils % 87.8 %; White Blood Count 13.4 K/mcL (4.3-11.1)
[2022-01-03 06:11] LABS: Calcium 9.2 mg/dL (8.6-10.3); Magnesium 1.7 mg/dL (1.6-2.6); Phosphorous 3.2 mg/dL (2.7-4.5); Potassium 4.3 mEq/L (3.5-5.1)
[2022-01-03] MEDS: Tiotropium 10 INH DOSE IH SCH (07:32)
[2022-01-03] MEDS ORDERED: MOM Conc 10 ML UD.LIQ PO ONE (08:46)
[2022-01-03] MEDS: Apixaban 2.5 MG TABLET PO SCH ×2 (09:06→20:20)
[2022-01-03] MEDS: Lactulose Oral Soln 20 GM/30 ML UDC PO SCH ×2 (09:06→20:20)
[2022-01-03] MEDS: Famotidine 20 MG TABLET PO SCH (09:06)
[2022-01-03] MEDS: DilTIAZem CD (24hr) 180 MG CAP.ER.24H PO SCH (09:07)
[2022-01-03] MEDS: Finasteride 5 MG TABLET PO SCH (09:07)
[2022-01-03] MEDS: Simethicone 80 MG TAB.CHEW PO SCH ×3 (09:07→20:20)
[2022-01-03] MEDS: Furosemide 40 MG/4 ML VIAL IVP SCH ×2 (09:07→16:47)
[2022-01-03] MEDS: predniSONE 5 MG TABLET PO SCH (09:07)
[2022-01-03] MEDS: Folic Acid 1 MG TABLET PO SCH (09:07)
[2022-01-03] MEDS: metOLazone 5 MG TABLET PO SCH (09:12)
[2022-01-03] MEDS: Furosemide 20 MG/2 ML VIAL IVP SCH (09:13)
[2022-01-03 12:46] LABS: Appearance of Pleural Fl Clear (Clear)
[2022-01-03 12:50] LABS: RBC,Pleural Fluid < 2000 RBC/mcL
[2022-01-03 13:25] LABS: Glucose,Pleural Fluid 133 mg/dL (No Ref Range); LDH,Pleural Fluid 57 Units/L (No Ref Range); Total Protein,Pleural Fluid < 2.0 g/dL
[2022-01-03 15:27] LABS: Eosinophils,Pleural Fluid 0 %
[2022-01-03] MEDS: Meropenem 1,000 MG in 0.9 % Sodium Chloride 10 ML IVP SCH (16:47)
[2022-01-03] MEDS: traZODone 50 MG TABLET PO SCH (20:20)
[2022-01-04] MEDS: Ipratropium/Albuterol Neb 3 ML IH SCH ×6 (04:07→23:12)
[2022-01-04 04:47] LABS: Basophils # 0.1 K/mcL (0.0-0.2); Basophils % 0.4 %; Eosinophils # 0.4 K/mcL (0.0-0.6); Eosinophils % 2.7 %; Hemoglobin 7.6 g/dL (12.9-16.9); Immature Granulocytes % 0.6 % (0-4); Lymphocytes # 0.4 K/mcL (0.6-4.6); Lymphocytes % 3.2 %; Mean Corpuscular HGB Conc 31.7 g/dL (31.6-35.5); Mean Corpuscular Hemoglobin 30.4 pg (28.0-33.3); Mean Platelet Volume 9.4 fL (9.4-12.4); Monocytes % 7.7 %; Platelet Count 272 K/mcL (140-400); Red Cell Distribution Width 15.3 % (11.5-14.5); Segmented Neutrophils % 85.4 %; White Blood Count 12.9 K/mcL (4.3-11.1)
[2022-01-04 05:02] LABS: Calcium 9.1 mg/dL (8.6-10.3); Magnesium 1.8 mg/dL (1.6-2.6); Phosphorous 2.9 mg/dL (2.7-4.5)
[2022-01-04] MEDS: Meropenem 1,000 MG in 0.9 % Sodium Chloride 10 ML IVP SCH ×2 (06:23→17:17)
[2022-01-04] MEDS: Lactulose Oral Soln 20 GM/30 ML UDC PO SCH ×2 (07:50→20:31)
[2022-01-04] MEDS: predniSONE 5 MG TABLET PO SCH (07:50)
[2022-01-04] MEDS: DilTIAZem CD (24hr) 180 MG CAP.ER.24H PO SCH (07:50)
[2022-01-04] MEDS: Folic Acid 1 MG TABLET PO SCH (07:50)
[2022-01-04] MEDS: Furosemide 40 MG/4 ML VIAL IVP SCH ×2 (07:50→16:30)
[2022-01-04] MEDS: Finasteride 5 MG TABLET PO SCH (07:50)
[2022-01-04] MEDS: Apixaban 2.5 MG TABLET PO SCH ×2 (07:50→20:30)
[2022-01-04] MEDS: metOLazone 5 MG TABLET PO SCH (07:55)
[2022-01-04] MEDS ORDERED: Famotidine 20 MG TABLET PO SCH (09:00)
[2022-01-04] MEDS: DAPTOmycin 750 MG in 0.9 % Sodium Chloride 100 ML IVPB SCH (13:24)
[2022-01-04] MEDS: traZODone 50 MG TABLET PO SCH (20:30)
[2022-01-05] MEDS: Ipratropium/Albuterol Neb 3 ML IH SCH ×4 (03:31→15:28)
[2022-01-05] MEDS: Meropenem 1,000 MG in 0.9 % Sodium Chloride 10 ML IVP SCH ×2 (04:42→17:00)
[2022-01-05 06:40] LABS: Basophils # 0.1 K/mcL (0.0-0.2); Basophils % 0.4 %; Eosinophils # 0.4 K/mcL (0.0-0.6); Hematocrit 24.2 % (37.5-50.1); Hemoglobin 7.8 g/dL (12.9-16.9); Immature Granulocytes % 0.7 % (0-4); Lymphocytes # 0.5 K/mcL (0.6-4.6); Lymphocytes % 3.8 %; Mean Corpuscular HGB Conc 32.2 g/dL (31.6-35.5); Mean Corpuscular Hemoglobin 30.6 pg (28.0-33.3); Mean Corpuscular Volume 94.9 fL (83.0-100.0); Mean Platelet Volume 9.5 fL (9.4-12.4); Monocytes # 0.8 K/mcL (0.0-1.3); Monocytes % 6.7 %; Neutrophils # 10.4 K/mcL (1.6-8.9); Platelet Count 286 K/mcL (140-400); Red Blood Count 2.55 M/mcL (4.19-5.50); Red Cell Distribution Width 15.2 % (11.5-14.5); Segmented Neutrophils % 85.4 %; White Blood Count 12.2 K/mcL (4.3-11.1)
[2022-01-05 06:57] LABS: Calcium 9.2 mg/dL (8.6-10.3); Potassium 3.5 mEq/L (3.5-5.1)
[2022-01-05] MEDS: Lactulose Oral Soln 20 GM/30 ML UDC PO SCH (08:40)
[2022-01-05] MEDS: Folic Acid 1 MG TABLET PO SCH (08:40)
[2022-01-05] MEDS: DilTIAZem CD (24hr) 180 MG CAP.ER.24H PO SCH (08:41)
[2022-01-05] MEDS: Furosemide 40 MG/4 ML VIAL IVP SCH ×2 (08:41→17:00)
[2022-01-05] MEDS: Apixaban 2.5 MG TABLET PO SCH (08:41)
[2022-01-05] MEDS: predniSONE 5 MG TABLET PO SCH (08:41)
[2022-01-05] MEDS: metOLazone 5 MG TABLET PO SCH (08:41)
[2022-01-05] MEDS: Finasteride 5 MG TABLET PO SCH (08:41)
[2022-01-05] MEDS ORDERED: Lactulose Oral Soln 20 GM/30 ML UDC PO PRN (09:55)
[2022-01-05] MEDS ORDERED: Budesonide/Formoterol 160/4.5 1 PUFF INH IH SCH (10:00)
[2022-01-05 17:00] LABS: Adenovirus Not Detected (Not Detect); Bordetella Pertussis Not Detected (Not Detect); Chlamydophila pneumoniae Not Detected (Not Detect); Coronavirus 229E Not Detected (Not Detect); Coronavirus HKU1 Not Detected (Not Detect); Coronavirus NL63 Not Detected (Not Detect); Coronavirus OC43 Not Detected (Not Detect); Human Metapneumovirus Not Detected (Not Detect); Human Rhinovirus/Enterovirus Not Detected (Not Detect); Influenza A Subtype 2009 H1 Not Detected (Not Detect); Influenza B Not Detected (Not Detect); Mycoplasma pneumoniae Not Detected (Not Detect); Parainfluenza Virus 1 Not Detected (Not Detect); Parainfluenza Virus 2 Not Detected (Not Detect); Parainfluenza Virus 3 Not Detected (Not Detect); Parainfluenza Virus 4 Not Detected (Not Detect); Respiratory Syncytial Virus Not Detected (Not Detect); SARS-CoV-2 Not Detected (Not Detect)
[2022-01-05 18:35] VITALS: BP 133/64; PULSE 70; TEMP 98.3; O2SAT 100
[2022-01-06] MEDS ORDERED: Cyanocobalamin (B-12) 1,000 MCG TABLET PO SCH (09:00)
== END 2022-01-05 19:09 | DRG 682 ==
LOC: 2ANU → SUATTDRO 15:45
PROVIDERS: ADMIT Student in an Organized Health Care Education/Training Program; ATTEND Internal Medicine